=== PATIENT | female | born 1940 | race Caucasian/White ===

== ENCOUNTER → 2016-09-11 | Outpatient (CLI) | payer MEDICARE ==
[~2016-09-11] MED LIST: AMLO5TAB22 PO; ASPI81TA82 PO; BENA25CA2 PO; EPIP0.3I IM; OMEP20TA39 PO; PRED20 PO
[2016-09-11 11:10] LABS: BLOOD GAS BASE EXCESS -0.2 mmol/L (-2-2); BLOOD GAS CARBOXYHEMOGLOBIN 1.2 % (0-4); BLOOD GAS HCO3 24 mmol/L (22-26); BLOOD GAS METHEMOGLOBIN 1.3 % (0-2); BLOOD GAS O2 HGB SATURATION 92 % (90-100); BLOOD GAS OXYGEN CONTENT 18.3 Vol % (12.0-20.0); BLOOD GAS PCO2 37 mmHg (38-42); BLOOD GAS PO2 75 mmHg (61-120); BLOOD GAS TOTAL HGB 14.1 G/DL (12.0-16.0); TEMP CORR TO 98.6
[2016-09-11 11:11] LABS: CRITICAL VALUE NO; DRAW SITE RT RADIAL; FIO2 21 %; NUMBER OF ARTERIAL PUNCTURES 1; STAT NO; ULNAR PULSE PRESENT
--- NOTE | 2016-09-18 08:58 | RSPPFT ---
DATE OF PROCEDURE: 09/11/16 COMMENTS: Spirometry with FVC of 1.9 predicted 2.3, FEV1 of 1.4 predicted 1.7. Post-bronchodilator FVC increases to 2.3 and FEV1 to 1.7. Lung volumes are basically within the predicted range as well as the DLCO. Patient has mild reversibility to acutely inhaled bronchodilator. IMPRESSION:
== END ==
LOC: HRSP 10:27
PROVIDERS: ATTEND Internal Medicine Pulmonary Disease
DX: R06.02 Shortness of breath (principal)
CPT/HCPCS: 36600; 82805; 94060; 94620; 94726; 94729

== ENCOUNTER 2016-10-30 07:42 | Inpatient (IN) | payer MEDICARE ==
[~2016-10-30] VITALS: Ht 156.2 cm; Wt 65.0 kg
[2016-10-30] VITALS (11 sets, daily range): BP systolic 133–190; BP diastolic 77–93; PULSE 84–125; RESP 16–25; TEMP 97.9–98.7; O2SAT 96–100
--- NOTE | 2016-10-30 08:05 | PD ---
HPI Chief Complaint: Respiratory Distress Time Seen by Provider: 08:01 Travel History International Travel<30 days: No Contact w/Intl Traveler<30days: No Traveled to known affect area: No History of Present Illness HPI Patient 68-year-old female presents emergency Department with chest tightness shortness of breath particularly over the left side of her chest. She states it started a week ago but hit her very suddenly this morning feeling very tight in her chest. Does endorse shortness of breath no nausea no vomiting. She states that she also noticed some swelling in her left lower extremity which is since resolved. She states this was located over the medial aspect of her left leg. Denies any fevers cough but does endorse some congestion. PFSH Past Medical History Asthma: No Blood Disorders: No Anxiety: No Depression: No Heart Rhythm Problems: No Cancer: No Cardiovascular Problems: Yes (HTN) High Cholesterol: No Chemotherapy: No Chest Pain: Yes Congestive Heart Failure: No COPD: No Cerebrovascular Accident: Yes (COPD) Diabetes: Yes Diminished Hearing: No Endocrine: Yes (DM ) Gastrointestinal Disorders: No Genitourinary: Yes (UTI) Hypertension: Yes Immune Disorder: No Implanted Vascular Access Dvce: No Musculoskeletal: No Neurologic: No Psychiatric: No Reproductive: No Respiratory: No Radiation Therapy: No Sleep Apnea: No Thyroid Disease: No ?: Not Dilation and Curettage (D&C): Yes Past Surgical History Cholecystectomy: Yes Tonsillectomy: Yes Social History Alcohol Use: No Tobacco Use: No Substance Use: No Allergies-Medications (Allergen,Severity, Reaction): Coded Allergies: iohexol (Unverified Allergy, Mild, 10/30/16) insulin aspart (Unverified Adverse Reaction, Intermediate, 10/30/16) chest pressure, SOB AND AND HEADACHES. insulin aspart protamine human (Unverified Adverse Reaction, Intermediate , 10/30/16) chest pressure, SOB AND AND HEADACHES. insulin detemir (Unverified Adverse Reaction, Intermediate, 10/30/16) chest pressure, SOB AND AND HEADACHES. insulin glargine (Unverified Adverse Reaction, Intermediate, 10/30/16) chest pressure, SOB AND AND HEADACHES. insulin isophane (NPH) (Unverified Adverse Reaction, Intermediate, 10/30/16 ) chest pressure, SOB AND AND HEADACHES. insulin lispro (Unverified Adverse Reaction, Intermediate, 10/30/16) chest pressure, SOB AND AND HEADACHES. insulin regular (Unverified Adverse Reaction, Intermediate, 10/30/16) chest pressure, SOB AND AND HEADACHES. Reported Meds & Prescriptions Reported Meds & Active Scripts Active Reported Amlodipine (Amlodipine Besylate) 5 Mg Tab 5 Mg PO BID Aspirin Children's (Aspirin) 81 Mg Chew 81 Mg CHEW DAILY Review of Systems Except as stated in HPI: all other systems reviewed are Neg Physical Exam Narrative GENERAL: Well-developed well-nourished in no obvious distress. SKIN: Focused skin assessment warm/dry. HEAD: Atraumatic. Normocephalic. EYES: Pupils equal and round. No scleral icterus. No injection or drainage. ENT: No nasal bleeding or discharge. Mucous membranes pink and moist. NECK: Trachea midline. No JVD. CARDIOVASCULAR: Regular rate and rhythm. No murmur appreciated. RESPIRATORY: No accessory muscle use. Clear to auscultation. Breath sounds equal bilaterally. Mildly tachypneic. Speaking in full sentences distractible from her shortness of breath. GASTROINTESTINAL: Abdomen soft, non-tender, nondistended. Hepatic and splenic margins not palpable. MUSCULOSKELETAL: No obvious deformities. No clubbing. No cyanosis. No edema. NEUROLOGICAL: Awake and alert. No obvious cranial nerve deficits. Motor grossly within normal limits. Normal speech. PSYCHIATRIC: Appropriate mood and affect; insight and judgment normal. Data Data Last Documented VS Vital Signs Date Time Temp Pulse Resp B/P Pulse Ox O2 Delivery O2 Flow Rate FiO2 10/30/16 12:58 97 18 154/89 98 Nasal Cannula 2 10/30/16 08:05 98.4 Orders Electrocardiogram (10/30/16 08:02) B-Type Natriuretic Peptide (10/30/16 08:02) Ckmb (Isoenzyme) Profile (10/30/16 08:02) Complete Blood Count With Diff (10/30/16 08:02) Comprehensive Metabolic Panel (10/30/16 08:02) Magnesium (Mg) (10/30/16 08:02) Prothrombin Time / Inr (Pt) (10/30/16 08:02) Act Partial Throm Time (Ptt) (10/30/16 08:02) Troponin I (10/30/16 08:02) Chest, Single Ap (10/30/16 08:02) Ecg Monitoring (10/30/16 08:02) Iv Access Insert/Monitor (10/30/16 08:02) Oximetry (10/30/16 08:02) Oxygen Administration (10/30/16 08:02) Aspirin Chew (Aspirin Chew) (10/30/16 08:15) Sodium Chloride 0.9% Flush (Ns Flush) (10/30/16 08:15) D-Dimer (10/30/16 08:05) Ventilation & Perfusion Scan (10/30/16 ) Nitroglycerin Sl (Nitrostat Sl) (10/30/16 08:30) Lorazepam Inj (Ativan Inj) (10/30/16 09:15) Admit Order (Ed Use Only) (10/30/16 ) Labs Laboratory Tests Test 10/30/16 08:20 White Blood Count 7.9 TH/MM3 Red Blood Count 4.55 MIL/MM3 Hemoglobin 13.6 GM/DL Hematocrit 40.5 % Mean Corpuscular Volume 88.9 FL Mean Corpuscular Hemoglobin 30.0 PG Mean Corpuscular Hemoglobin 33.7 % Concent Red Cell Distribution Width 13.9 % Platelet Count 246 TH/MM3 Mean Platelet Volume 8.8 FL Neutrophils (%) (Auto) 50.3 % Lymphocytes (%) (Auto) 37.5 % Monocytes (%) (Auto) 5.8 % Eosinophils (%) (Auto) 5.4 % Basophils (%) (Auto) 1.0 % Neutrophils # (Auto) 4.0 TH/MM3 Lymphocytes # (Auto) 3.0 TH/MM3 Monocytes # (Auto) 0.5 TH/MM3 Eosinophils # (Auto) 0.4 TH/MM3 Basophils # (Auto) 0.1 TH/MM3 CBC Comment DIFF FINAL Differential Comment Prothrombin Time 10.1 SEC Prothromb Time International 0.9 RATIO Ratio Activated Partial 25.6 SEC Thromboplast Time D-Dimer Quantitative (PE/DVT) 0.77 MG/L FEU Sodium Level 136 MEQ/L Potassium Level 3.6 MEQ/L Chloride Level 103 MEQ/L Carbon Dioxide Level 26.0 MEQ/L Anion Gap 7 MEQ/L Blood Urea Nitrogen 14 MG/DL Creatinine 0.83 MG/DL Estimat Glomerular Filtration 66 ML/MIN Rate Random Glucose 234 MG/DL Calcium Level 8.1 MG/DL Magnesium Level 2.2 MG/DL Total Bilirubin 0.3 MG/DL Aspartate Amino Transf 13 U/L (AST/SGOT) Alanine Aminotransferase 20 U/L (ALT/SGPT) Alkaline Phosphatase 119 U/L Total Creatine Kinase 55 U/L Troponin I LESS THAN 0.02 NG/ML B-Type Natriuretic Peptide 23 PG/ML Total Protein 6.5 GM/DL Albumin 3.6 GM/DL MDM Medical Decision Making Medical Screen Exam Complete: Yes Emergency Medical Condition: Yes Interpretation(s) EKG shows sinus rhythm a rate of 94, normal axis and normal R-wave progression. Nonspecific T-wave abnormality in V5 and V6. Intervals within normal limits. This borderline EKG Differential Diagnosis PE, ACS, AMI, pneumonia, anxiety. Narrative Course Patient roomed in emergency department, not impressed with her leg swelling but given her age and her chest pain shortness of breath she needs exclusion of PE. A d-dimer was sent which was slightly positive. Given the patient's allergy she cannot be having a CAT scan pulmonary embolism. She instead underwent VQ scan was low probability for pulmonary embolus. Discussed results with her and recommended chest pain center observation and she is agreeable. Initially placed in orders for chest pain center however was informed that given that she' s had VQ scan she is inappropriate for stress testing for the next 48 hours and chest pain center PA recommends admission to hospitalist. The patient was discussed with Dr. Paul for admission to Dr. Smith. Diagnosis Primary Impression: Chest pain Admitting Information Admitting Physician Requests: Observation Condition: Stable Napoleon Santana MD Oct 30, 2016 08:05
[2016-10-30] MEDS ORDERED: ASPI81CH7 CHEW (08:12)
[2016-10-30] MEDS ORDERED: AMLO5TAB2 PO (08:12)
[2016-10-30] MEDS ORDERED: SODIUM CHLORIDE 0.9% FLUSH 10 ML FLUSH IVF PRN (08:15)
[2016-10-30] MEDS ORDERED: ASPIRIN 81 MG CHEW TAB PO ONE (08:15)
[2016-10-30] MEDS ORDERED: NITROGLYCERIN 0.4 MG SL 25 TABS/BTL SL ONE (08:30)
[2016-10-30 08:41] LABS: BASOPHIL # 0.1 TH/MM3 (0-0.2); EOSINOPHIL # 0.4 TH/MM3 (0-0.4); EOSINOPHIL % 5.4 % (0.0-4.0); HEMATOCRIT 40.5 % (35.0-46.0); HEMO FLAGS DIFF FINAL; LYMPH % 37.5 % (9.0-44.0); MEAN CELL VOLUME 88.9 FL (80.0-100.0); MEAN CORPUSCULAR HGB CONC 33.7 % (32.0-36.0); MONO % 5.8 % (0.0-8.0); NEUT % 50.3 % (16.0-70.0); PLATELET COUNT 246 TH/MM3 (150-450); RED BLOOD COUNT 4.55 MIL/MM3 (4.00-5.30); RED CELL DISTRIBUTION WIDTH 13.9 % (11.6-17.2); WHITE BLOOD COUNT 7.9 TH/MM3 (4.0-11.0)
--- NOTE | 2016-10-30 08:52 | RADRPT ---
EXAM DATE/TIME: 10/30/2016 08:21 [facility] COMPARISON: CHEST SINGLE AP, June 06, 2014, 11:12. INDICATIONS : Chest pain. MEDICAL HISTORY : None. SURGICAL HISTORY : None. ENCOUNTER: Initial ACUITY: 1 day PAIN SCORE: 6/10 LOCATION: Middle chest FINDINGS: The heart and mediastinal structures are normal. The pulmonary vascular pattern is normal. The lung s are clear. Degenerative changes and scoliosis of the thoracolumbar spine are noted. CONCLUSION: 1. No acute cardiopulmonary disease. 2. Degenerative changes and scoliosis of the thoracolumbar spine. Napoleon Mills MD on October 30, 2016 at 8:46 Board Certified Radiologist. This report was verified electronically.
[2016-10-30 08:58] LABS: APTT (PATIENT) 25.6 SEC (24.3-30.1); INTERNATIONAL NORMALIZED RATIO 0.9 RATIO; PROTHROMBIN TIME - PATIENT 10.1 SEC (9.8-11.6)
[2016-10-30 08:59] LABS: ALT (GPT) 20 U/L (10-53); ANION GAP 7 MEQ/L (5-15); AST (GOT) 13 U/L (15-37); BLOOD UREA NITROGEN 14 MG/DL (7-18); CHLORIDE 103 MEQ/L (98-107); GLOMERULAR FILTRATION RATE 66 ML/MIN (>89); MAGNESIUM 2.2 MG/DL (1.5-2.5); POTASSIUM 3.6 MEQ/L (3.5-5.1); SODIUM (NA) 136 MEQ/L (136-145)
[2016-10-30 09:03] LABS: ALKALINE PHOSPHATASE 119 U/L (45-117); TOTAL BILIRUBIN ADULT 0.3 MG/DL (0.2-1.0)
[2016-10-30 09:07] LABS: CREATINE KINASE 55 U/L (26-192)
[2016-10-30] MEDS ORDERED: LORazepam 2 MG/ML VIAL IV PUSH ONE (09:15)
--- NOTE | 2016-10-30 12:55 | RADRPT ---
EXAM DATE/TIME: 10/30/2016 12:06 [facility] COMPARISON: CHEST SINGLE AP, October 30, 2016, 8:21. INDICATIONS : Chest tightness with dyspnea and left lower extremity swelling. DOSE: 8.6 mCi Tc99m MAA IV 1.3 mCi Tc99m DTPA aerosol MEDICAL HISTORY : Chronic obstructive pulmonary disease. Diabetes mellitus type 2. Hypertension. Stroke. SURGICAL HISTORY : Cholecystectomy. ENCOUNTER: Initial ACUITY: 1 week PAIN SCALE: 3/10 LOCATION: chest TECHNIQUE: Following five minutes of tidal breathing of DTPA aerosol, planar images of the lungs were performed in eight projections. The patient was then injected with MAA, and eight-view perfusion scan was perf ormed. FINDINGS: There is a homogeneous pattern of aerosol delivery to the periphery of both lungs. No focal ventilat ory defects are seen. The perfusion lung scan demonstrates a homogenous pattern of uptake in both lungs. No segmental or s ubsegmental defects are seen. CONCLUSION: Low probability for pulmonary embolism. Napoleon Mills MD on October 30, 2016 at 12:53 Board Certified Radiologist. This report was verified electronically.
--- NOTE | 2016-10-30 16:44 | EKG ---
Date Performed: 10/30/2016 Time Performed: 08:15:05 PTAGE: 76 years EKG: Sinus rhythm NONSPECIFIC T-WAVE ABNORMALITY BORDERLINE ECG PREVIOUS TRACING : 06/06/2014 23.31 Compared to prior tracing no significant change DOCTOR: Mitchell Dominguez Interpretating Date/Time 10/30/2016 16:42:28
[2016-10-30] MEDS ORDERED: LACTULOSE SYRUP 20 GM/30 ML CUP PO PRN (17:00)
[2016-10-30] MEDS ORDERED: ACETAMINOPHEN 325 MG TAB PO PRN (17:00)
[2016-10-30] MEDS ORDERED: SODIUM CHLORIDE 0.9% FLUSH 10 ML FLUSH IV FLUSH PRN (17:00)
[2016-10-30] MEDS ORDERED: BISACODYL 10 MG SUPP RECTAL PRN (17:00)
[2016-10-30] MEDS ORDERED: SENNOSIDES 8.6 MG TAB PO PRN (17:00)
[2016-10-30] MEDS ORDERED: MAGNESIUM HYDROXIDE SUSP 30 ML CUP PO PRN (17:00)
[2016-10-30] MEDS ORDERED: NALOXONE HCL 0.4 MG/ML AMP IV PRN (17:00)
--- NOTE | 2016-10-30 17:13 | HHI.HP ---
HPI Service [facility] Hospitalists Primary Care Physician Yancy Dsouza MD Admission Diagnosis Chest Pain Chief Complaint: chest pain and some shortness of breath for 2 -3 days worse today Travel History International Travel<30 Days: No Contact w/Intl Traveler <30 Da: No Traveled to Known Affected Are: No History of Present Illness Patient 68-year-old female presents emergency Department with chest tightness shortness of breath particularly over the left side of her chest. She states it started a week ago but hit her very suddenly this morning feeling very tight in her chest. Does endorse shortness of breath no nausea no vomiting. She states that she also noticed some swelling in her left lower extremity which is since resolved. She states this was located over the medial aspect of her left leg. Denies any fevers cough but does endorse some congestion. Does state has had problems with legs for a while due to varicosities. Patient also states unable to tolerate iv contrast and had nuc stress test in past and coded. Review of Systems Respiratory: COMPLAINS OF: Shortness of breath Cardiovascular: COMPLAINS OF: Chest pain Past Family Social History Past Medical History copd,chest pain,hypertension allergies to multiple meds ,insulin and po insulin products Past Surgical History gallbladder,tonsil Reported Medications norvasc 5 bid,asa81,prednisone when having allergic reactions Allergies: Coded Allergies: iohexol (Unverified Allergy, Mild, 10/30/16) insulin aspart (Unverified Adverse Reaction, Intermediate, 10/30/16) chest pressure, SOB AND AND HEADACHES. insulin aspart protamine human (Unverified Adverse Reaction, Intermediate , 10/30/16) chest pressure, SOB AND AND HEADACHES. insulin detemir (Unverified Adverse Reaction, Intermediate, 10/30/16) chest pressure, SOB AND AND HEADACHES. insulin glargine (Unverified Adverse Reaction, Intermediate, 10/30/16) chest pressure, SOB AND AND HEADACHES. insulin isophane (NPH) (Unverified Adverse Reaction, Intermediate, 10/30/16 ) chest pressure, SOB AND AND HEADACHES. insulin lispro (Unverified Adverse Reaction, Intermediate, 10/30/16) chest pressure, SOB AND AND HEADACHES. insulin regular (Unverified Adverse Reaction, Intermediate, 10/30/16) chest pressure, SOB AND AND HEADACHES. Social History NS,ND Physical Exam Vital Signs Vital Signs Date Time Temp Pulse Resp B/P Pulse Ox O2 Delivery O2 Flow Rate FiO2 10/30/16 15:00 88 16 153/81 98 Nasal Cannula 2 10/30/16 14:00 88 18 149/79 98 Nasal Cannula 2 10/30/16 12:58 97 18 154/89 98 Nasal Cannula 2 10/30/16 11:00 86 16 133/77 98 Nasal Cannula 2 10/30/16 09:50 96 18 154/87 99 Nasal Cannula 2 10/30/16 09:05 125 24 181/93 98 Nasal Cannula 4 10/30/16 09:05 98 Nasal Cannula 4 10/30/16 08:10 96 Room Air 10/30/16 08:10 96 Room Air 10/30/16 08:05 98.4 96 25 190/90 96 Room Air 10/30/16 07:44 98.7 104 20 179/81 97 Physical Exam GENERAL: This is a well-nourished, well-developed patient, in no apparent distress. SKIN: No rashes, ecchymoses or lesions. Cool and dry. HEAD: Atraumatic. Normocephalic. No temporal or scalp tenderness. EYES: Pupils equal round and reactive. Extraocular motions intact. No scleral icterus. No injection or drainage. ENT: Nose without bleeding, purulent drainage or septal hematoma. Throat without erythema, tonsillar hypertrophy or exudate. Uvula midline. Airway patent. NECK: Trachea midline. No JVD or lymphadenopathy. Supple, nontender, no meningeal signs. CARDIOVASCULAR: Regular rate and rhythm without murmurs, gallops, or rubs. RESPIRATORY: rhonchi at bases some decrease in breath sounds GASTROINTESTINAL: Abdomen soft, non-tender, nondistended. No hepato-splenomegaly , or palpable masses. No guarding. MUSCULOSKELETAL: Extremities without clubbing, cyanosis, or edema. No joint tenderness, effusion, or edema noted. No calf tenderness. Negative Homans sign bilaterally. NEUROLOGICAL: Awake and alert. Cranial nerves II through XII intact. Motor and sensory grossly within normal limits. Five out of 5 muscle strength in all muscle groups. Normal speech. Laboratory Laboratory Tests Test 10/30/16 08:20 White Blood Count 7.9 Red Blood Count 4.55 Hemoglobin 13.6 Hematocrit 40.5 Mean Corpuscular Volume 88.9 Mean Corpuscular Hemoglobin 30.0 Mean Corpuscular Hemoglobin 33.7 Concent Red Cell Distribution Width 13.9 Platelet Count 246 Mean Platelet Volume 8.8 Neutrophils (%) (Auto) 50.3 Lymphocytes (%) (Auto) 37.5 Monocytes (%) (Auto) 5.8 Eosinophils (%) (Auto) 5.4 Basophils (%) (Auto) 1.0 Neutrophils # (Auto) 4.0 Lymphocytes # (Auto) 3.0 Monocytes # (Auto) 0.5 Eosinophils # (Auto) 0.4 Basophils # (Auto) 0.1 CBC Comment DIFF FINAL Differential Comment Prothrombin Time 10.1 Prothromb Time International 0.9 Ratio Activated Partial 25.6 Thromboplast Time D-Dimer Quantitative (PE/DVT) 0.77 Sodium Level 136 Potassium Level 3.6 Chloride Level 103 Carbon Dioxide Level 26.0 Anion Gap 7 Blood Urea Nitrogen 14 Creatinine 0.83 Estimat Glomerular Filtration 66 Rate Random Glucose 234 Calcium Level 8.1 Magnesium Level 2.2 Total Bilirubin 0.3 Aspartate Amino Transf 13 (AST/SGOT) Alanine Aminotransferase 20 (ALT/SGPT) Alkaline Phosphatase 119 Total Creatine Kinase 55 Troponin I LESS THAN 0.02 B-Type Natriuretic Peptide 23 Total Protein 6.5 Albumin 3.6 Result Diagram: 10/30/16 0820 10/30/16 0820 Imaging Last 24 hours Impressions Chest X-Ray 10/30/16 0802 Signed Impressions: Service Date/Time: October 08:21 - CONCLUSION: 1. No acute cardiopulmonary disease. 2. Degenerative changes and scoliosis of the thoracolumbar spine. Napoleon Mills MD Lung Scan-V Nuclear Medicine 10/30/16 0000 Signed Impressions: Service Date/Time: October 12:06 - CONCLUSION: Low probability for pulmonary embolism. Napoleon Mills MD Course in er given ntg did have positive d dimmer and v/q negative Assessment and Plan Problem List: (1) Chest pain Status: Acute Plan: somewhat atypical will obtain serial enzymes and ekg and cardiac consult (2) COPD (chronic obstructive pulmonary disease) Status: Chronic Plan: use duo nebulizer prn and oxygen (3) HTN (hypertension) Status: Chronic Plan: continue norvasc (4) Diabetes Status: Chronic Plan: will follow glucose in am allergic to medications Assessment and Plan further plan as case develops Code Status full Discussed Condition With patient Physician Certification 2 Midnight Certification Type: Admission for Inpatient Services Order for Inpatient Services The services are ordered in accordance with Medicare regulations or non- Medicare payer requirements, as applicable. In the case of services not specified as inpatient-only, they are appropriately provided as inpatient services in accordance with the 2-midnight benchmark. Estimated LOS (days): 3 3 days is the estimated time the patient will need to remain in the hospital, assuming treatment plan goals are met and no additional complications. Post-Hospital Plan: Not yet determined Michael Funk MD Oct 30, 2016 17:13
[2016-10-30] MEDS ORDERED: NITROGLYCERIN 0.4 MG SL 25 TABS/BTL SL PRN (17:15)
[2016-10-30] MEDS ORDERED: LORazepam 0.5 MG TAB PO PRN (17:15)
[2016-10-30 20:51] LABS: CREATINE KINASE 62 U/L (26-192)
[2016-10-30] MEDS: RESP: ALBUTEROL 2.5 MG/IPRATROPIUM 0.5 MG NEB (PRN) NEB (20:59)
[2016-10-30] MEDS: SODIUM CHLORIDE 0.9% FLUSH 10 ML FLUSH IV FLUSH SCH (21:00)
[2016-10-30] MEDS: amLODIPine BESYLATE 5 MG TAB PO SCH (21:45)
[2016-10-30] MEDS: DOCUSATE SODIUM 50 MG/SENNA 8.6 MG TAB PO SCH (21:45)
[2016-10-31 00:06] VITALS: BP 154/70; PULSE 77; TEMP 98.6; O2SAT 97
[2016-10-31 02:33] LABS: AUTOMATED NEUTROPHIL # 4.1 TH/MM3 (1.8-7.7); BASOPHIL # 0.1 TH/MM3 (0-0.2); BASOPHIL % 0.9 % (0.0-2.0); EOSINOPHIL # 0.4 TH/MM3 (0-0.4); EOSINOPHIL % 4.4 % (0.0-4.0); HEMATOCRIT 39.9 % (35.0-46.0); HEMO FLAGS DIFF FINAL; LYMPH % 41.4 % (9.0-44.0); LYMPHOCYTE # 3.7 TH/MM3 (1.0-4.8); MEAN CELL VOLUME 89.2 FL (80.0-100.0); MEAN CORPUSCULAR HEMOGLOBIN 29.5 PG (27.0-34.0); MEAN CORPUSCULAR HGB CONC 33.1 % (32.0-36.0); MONO % 7.3 % (0.0-8.0); PLATELET COUNT 228 TH/MM3 (150-450); RED BLOOD COUNT 4.48 MIL/MM3 (4.00-5.30); WHITE BLOOD COUNT 8.9 TH/MM3 (4.0-11.0)
[2016-10-31 02:52] LABS: ANION GAP 7 MEQ/L (5-15); BICARBONATE 27.8 MEQ/L (21.0-32.0); BLOOD UREA NITROGEN 12 MG/DL (7-18); CHLORIDE 104 MEQ/L (98-107); GLOMERULAR FILTRATION RATE 71 ML/MIN (>89); POTASSIUM 3.8 MEQ/L (3.5-5.1); SODIUM (NA) 139 MEQ/L (136-145)
[2016-10-31 02:57] LABS: CREATINE KINASE 57 U/L (26-192)
[2016-10-31 06:26] VITALS: BP 135/72; PULSE 82; RESP 18; TEMP 98.4; O2SAT 94
[2016-10-31] MEDS: RESP: ALBUTEROL 2.5 MG/IPRATROPIUM 0.5 MG NEB (PRN) NEB (07:25)
[2016-10-31 07:28] VITALS: O2SAT 96
[2016-10-31 07:56] VITALS: BP 143/65; PULSE 90; RESP 18; TEMP 97.7; O2SAT 95
[2016-10-31 08:00] VITALS: PULSE 84
--- NOTE | 2016-10-31 08:37 | MB ---
cc: LIZBETH AQUINO DATE OF CONSULTATION 10/31/2016 INDICATION Chest pain, shortness of breath. BRIEF HISTORY This is a 68-year-old female. She does have a history of known heart disease follows with Dr. Johnson for some "extra heartbeats and hypertension". She does not see him on a regular basis, but does state that she had a stress test earlier this year which was reportedly normal. She came into the emergency department with several days of progressive shortness of breath and a band-like sensation across her chest. They seem to occur at the same time. She does have some relief with an inhaler. No pain with deep inspiration. Her symptoms are not exertional related. She says she can wake up with shortness of breath. She has had a nonproductive cough. She did have some swelling in the left leg which is now resolved. PAST MEDICAL HISTORY 1. COPD 2. Hypertension MEDICATIONS Norvasc ALLERGIES Insulin SOCIAL HISTORY Denies any alcohol, tobacco or drug use. REVIEW OF SYSTEMS A 12 poin review of systems was performed and is negative unless otherwise as noted in the history of present illness. PHYSICAL EXAMINATION Temperature 98, pulse 82, blood pressure 135/72 mmHg. GENERAL: Alert and oriented x3 in no acute distress. HEENT: Exam shows pupils reactive to light and accommodation. Extraocular movements are intact. NECK: No elevation of venous distension. No thyromegaly or lymphadenopathy. No carotid bruits. LUNGS: Clear to auscultation bilaterally. CARDIOVASCULAR: Regular rate and rhythm without murmurs, rubs or gallops. ABDOMEN: Nontender and nondistended with good bowel sounds. No hepatosplenomegaly. EXTREMITIES: No clubbing, cyanosis or edema. Good peripheral pulses. NEUROLOGIC: Cranial nerves intact. Motor sensory grossly intact. LABORATORY DATA Sodium 139, potassium 3.8, BUN is 12, creatinine 0.78, troponins negative x3. WBC 8.9, hemoglobin is 13.2, platelet count is 228, INR 0.9. Electrocardiogram sinus rhythm, nonspecific ST flattening. No change compared to prior electrocardiogram. ASSESSMENT 1. Chest pain 2. Shortness of breath 3. High blood pressure PLAN Her symptoms are fairly atypical, nonexertional. Her chest pain is associated with her shortness of breath, but sounds for bronchospastic. She has also had a nonproductive cough. Chest x-ray is unremarkable. VQ scan is unremarkable. She may have some sort of upper respiratory infection/bronchitis with reactive airway disease. Her symptoms improved with bronchodilator. Her last stress test she states she had severe bronchospasm, probably induced by the adenosine. She is reluctant to proceed with any further stress testing with nuclear stress testing. I do not think she will be able to run on a treadmill. At this point, given her atypical presentation, negative troponin, and unremarkable electrocardiogram, I feel pretty comfortable that her symptoms are more pulmonary than cardiac. She will need to get on a bronchodilator regimen and she can follow up with Dr. Johnson in the outpatient setting. At that point if she is still having some symptoms, we can try to coordinate for stress test. MD DIANA Verdugo/ELEUTERIO /7:58 AM /8:27 AM
[2016-10-31] MEDS ORDERED: ASPIRIN 81 MG CHEW TAB CHEW SCH (09:00)
[2016-10-31] MEDS: amLODIPine BESYLATE 5 MG TAB PO SCH (09:33)
[2016-10-31] MEDS: DOCUSATE SODIUM 50 MG/SENNA 8.6 MG TAB PO SCH (09:33)
[2016-10-31] MEDS: SODIUM CHLORIDE 0.9% FLUSH 10 ML FLUSH IV FLUSH SCH (09:34)
[2016-10-31] MEDS ORDERED: methylPREDNISolone SOD SUCC 125 MG/2 ML VIAL IV PUSH ONE (10:00)
--- NOTE | 2016-10-31 10:02 | HHI.PR ---
Subjective Remarks Pt reports that she has been having wheezing and slight SOB with exertion for the last few weeks Then yesterday this worsened significantly and she felt like she couldn't catch her breath and had some chest tightness Pt was quite anxious as well. She has a hx of COPD and has had some slight exacerbations in the last and has had to use nebulizer breathing treatments and home previously She had not been using her nebulizer treatments when her wheezing and SOB began a few weeks ago. She has had two breathing treatments since admission and is symptomatically feeling better today but still having wheezing. Objective Vitals Vital Signs Date Time Temp Pulse Resp B/P Pulse Ox O2 Delivery O2 Flow Rate FiO2 10/31/16 07:56 97.7 90 18 143/65 95 10/31/16 07:28 96 21 10/31/16 06:26 98.4 82 18 135/72 94 10/31/16 00:06 98.6 77 154/70 97 10/30/16 20:59 100 Nasal Cannula 2.00 10/30/16 18:00 97.9 84 16 168/79 97 10/30/16 15:00 88 16 153/81 98 Nasal Cannula 2 10/30/16 14:00 88 18 149/79 98 Nasal Cannula 2 10/30/16 12:58 97 18 154/89 98 Nasal Cannula 2 10/30/16 11:00 86 16 133/77 98 Nasal Cannula 2 10/30/16 10/30/16 10/31/16 15:00 23:00 07:00 Intake Total 200 ml Output Total 200 ml Balance 200 ml -200 ml Intake Oral 200 ml Output Urine Total 200 ml Result Diagram: 10/31/168 10/31/168 Other Results Laboratory Tests Test 10/30/16 10/30/16 10/31/16 08:20 19:24 02:18 White Blood Count 7.9 TH/MM3 8.9 TH/MM3 Red Blood Count 4.55 MIL/MM3 4.48 MIL/MM3 Hemoglobin 13.6 GM/DL 13.2 GM/DL Hematocrit 40.5 % 39.9 % Mean Corpuscular Volume 88.9 FL 89.2 FL Mean Corpuscular Hemoglobin 30.0 PG 29.5 PG Mean Corpuscular Hemoglobin 33.7 % 33.1 % Concent Red Cell Distribution Width 13.9 % 14.0 % Platelet Count 246 TH/MM3 228 TH/MM3 Mean Platelet Volume 8.8 FL 8.8 FL Neutrophils (%) (Auto) 50.3 % 46.0 % Lymphocytes (%) (Auto) 37.5 % 41.4 % Monocytes (%) (Auto) 5.8 % 7.3 % Eosinophils (%) (Auto) 5.4 % 4.4 % Basophils (%) (Auto) 1.0 % 0.9 % Neutrophils # (Auto) 4.0 TH/MM3 4.1 TH/MM3 Lymphocytes # (Auto) 3.0 TH/MM3 3.7 TH/MM3 Monocytes # (Auto) 0.5 TH/MM3 0.6 TH/MM3 Eosinophils # (Auto) 0.4 TH/MM3 0.4 TH/MM3 Basophils # (Auto) 0.1 TH/MM3 0.1 TH/MM3 CBC Comment DIFF FINAL DIFF FINAL Differential Comment Prothrombin Time 10.1 SEC Prothromb Time International 0.9 RATIO Ratio Activated Partial 25.6 SEC Thromboplast Time D-Dimer Quantitative (PE/DVT) 0.77 MG/L FEU Sodium Level 136 MEQ/L 139 MEQ/L Potassium Level 3.6 MEQ/L 3.8 MEQ/L Chloride Level 103 MEQ/L 104 MEQ/L Carbon Dioxide Level 26.0 MEQ/L 27.8 MEQ/L Anion Gap 7 MEQ/L 7 MEQ/L Blood Urea Nitrogen 14 MG/DL 12 MG/DL Creatinine 0.83 MG/DL 0.78 MG/DL Estimat Glomerular Filtration 66 ML/MIN 71 ML/MIN Rate Random Glucose 234 MG/DL 155 MG/DL Calcium Level 8.1 MG/DL 8.5 MG/DL Magnesium Level 2.2 MG/DL Total Bilirubin 0.3 MG/DL Aspartate Amino Transf 13 U/L (AST/SGOT) Alanine Aminotransferase 20 U/L (ALT/SGPT) Alkaline Phosphatase 119 U/L Total Creatine Kinase 55 U/L 62 U/L 57 U/L Troponin I LESS THAN 0.02 LESS THAN 0.02 LESS THAN 0.02 NG/ML NG/ML NG/ML B-Type Natriuretic Peptide 23 PG/ML Total Protein 6.5 GM/DL Albumin 3.6 GM/DL Imaging Last 24 hours Impressions Chest X-Ray 10/30/16 0802 Signed Impressions: Service Date/Time: October 08:21 - CONCLUSION: 1. No acute cardiopulmonary disease. 2. Degenerative changes and scoliosis of the thoracolumbar spine. Napoleon Mills MD Lung Scan-VQ Nuclear Medicine 10/30/16 0000 Signed Impressions: Service Date/Time: , October 30, 2016 12:06 - CONCLUSION: Low probability for pulmonary embolism. Napoleon Mills MD Objective Remarks General: NAD, AAOx3 Chest: Bilateral diffuser expiratory wheezing Cardiac: Regular Abd: +BS, soft ND/NT Ext: No edema A/P Problem List: (1) COPD exacerbation Status: Acute Plan: - Pt admitted with nonexertional chest tightness, SOB and wheezing which worsened yesterday. - She appears to be having a COPD exacerbation. - Pt had a CXR which was unremarkable - VQ scan with low probability for PE - Her CE are negative. - Pt was seen by Cardiology this morning and it was felt that her symptoms of chest pain are more pulmonary related. - We will give Solu-Medrol 125mg x one dose and then 60mg Q6H today - Schedule her Duoneb treatments Q4H WA - Monitor blood sugars closely while on the steroids. - Supportive care ADDENDUM: - Upon re-evaluation today pt wanted to be discharged home. - We will do a quick steroid taper and have her continue her breathing treatments at home Q4H while awake for the next 4-5 days then can be used Q4H PRN - pt will need to followup with her PCP in 1 week. (2) Chest pain Status: Acute Plan: - See above. (3) HTN (hypertension) Status: Chronic Plan: - Continue norvasc - Monitor (4) Diabetes Status: Chronic Plan: - Will follow glucose closely, pt is reportedly "allergic" to long acting insulins but reports that she is willing to try to NovoLog SSI - Previous symptoms with the long acting insulin was palpitations and elevations in her BP Assessment and Plan Patient examined. Assessment and plan formulated with Ruthann Richards PA-C. I agree with the above. Ruthann Richards Oct 31, 2016 10:02 Fabrice Smith DO Nov 03, 2016 21:13
[2016-10-31] MEDS ORDERED: PRED20 PO (11:29)
[2016-10-31] MEDS ORDERED: IPRA0.02 NEB (11:29)
[2016-10-31] MEDS ORDERED: ALBU0.08 NEB (11:29)
[2016-10-31] MEDS ORDERED: INSULIN ASPART SUPPLEMENTAL SCALE SQ SCH (11:30)
--- NOTE | 2016-10-31 11:30 | HHI.DCPOC ---
Discharge Care Plan Diagnosis: (1) COPD exacerbation (2) HTN (hypertension) (3) Chest pain (4) Diabetes Goals to Promote Your Health * To prevent worsening of your condition and complications * To maintain your health at the optimal level Directions to Meet Your Goals Take your medications as prescribed Follow your dietary instruction Follow activity as directed Keep your appointments as scheduled Take your immunizations and boosters as scheduled If your symptoms worsen call your PCP, if no PCP go to Urgent Care Center or Emergency Room Smoking is Dangerous to Your Health. Avoid second hand smoke Call the 24-hour hour crisis hotline for domestic abuse at Ruthann Richards Oct 31, 2016 11:30
[2016-10-31] MEDS ORDERED: RESP: ALBUTEROL 2.5 MG/IPRATROPIUM 0.5 MG NEB (SCH) NEB (12:00)
--- NOTE | 2016-10-31 13:56 | EKG ---
Date Performed: 10/30/2016 Time Performed: 19:29:05 PTAGE: 76 years EKG: Sinus rhythm NONSPECIFIC T-WAVE ABNORMALITY BORDERLINE ECG PREVIOUS TRACING : 10/30/2016 08.15 compared to previous tracing, T wave changes are new DOCTOR: Al Johnson Interpretating Date/Time 10/31/2016 13:55:47
--- NOTE | 2016-10-31 13:57 | EKG ---
Date Performed: 10/30/2016 Time Performed: 22:10:44 PTAGE: 76 years EKG: Sinus rhythm NONSPECIFIC T-WAVE ABNORMALITY BORDERLINE ECG PREVIOUS TRACING : 10/30/2016 19.29 Since previous tracing, no significant change noted DOCTOR: Al Johnson Interpretating Date/Time 10/31/2016 13:56:38
[2016-10-31] MEDS ORDERED: methylPREDNISolone SOD SUCC 125 MG/2 ML VIAL IV PUSH SCH (16:00)
== END 2016-10-31 12:25 | disposition home or self-care (01) | DRG 192 ==
LOC: NEPC 07:42 → NEDA 13:38 → OBSVTOIN 16:59 → NEPHCDU 17:20
PROVIDERS: ADMIT Hospitalist; ATTEND Hospitalist
DX: J44.1 Chronic obstructive pulmonary disease with (acute) exacerbation (principal); E11.9 Type 2 diabetes mellitus without complications; M41.9 Scoliosis, unspecified; I10 Essential (primary) hypertension; R07.9 Chest pain, unspecified; Z86.73 Personal history of transient ischemic attack (TIA), and cerebral infarction without residual deficits
CPT/HCPCS: 71010; 78582; 80048; 80053; 82550; 83735; 83880; 84484; 85025; 85379; 85610; 85730; 93005; 94640; 94664; 96374; A9540; A9567; G0378; J2060; J2930

== ENCOUNTER 2017-03-29 19:42 | Emergency (ER) | payer MEDICARE ==
[~2017-03-29] VITALS: Ht 157.5 cm; Wt 65.0 kg
[~2017-03-29 19:42] MED LIST changes: +ALBU0.08 NEB; +AMLO5TAB2 PO; -AMLO5TAB22 PO; +ASPI81CH7 CHEW; -ASPI81TA82 PO; -BENA25CA2 PO; -EPIP0.3I IM; +IPRA0.02 NEB; -OMEP20TA39 PO
[2017-03-29 19:45] VITALS: BP 177/89; PULSE 120; RESP 16; TEMP 98.8; O2SAT 97
[2017-03-29 20:44] VITALS: BP 190/94; PULSE 108; RESP 18; TEMP 99.9; O2SAT 96
[2017-03-29] MEDS ORDERED: OSEL75 PO (20:44)
--- NOTE | 2017-03-29 21:17 | PD ---
HPI Chief Complaint: Cold / Flu Symptoms Time Seen by Provider: 21:17 Travel History International Travel<30 days: No Contact w/Intl Traveler<30days: No Traveled to known affect area: No History of Present Illness HPI 76-year-old female presents to the emergency department for complaint of possible adverse reaction to Tamiflu. Patient states symptoms began after her 1 and only dose of Tamiflu. Patient recently diagnosed with flu. Patient reports she is not improving. Presents here for further evaluation. Patient has multiple medication allergies. Patient did not take any Benadryl for symptoms. Patient states that she thinks that she had some lip swelling but denies any tongue or throat swelling. No wheezing or shortness of breath. No chest pain. No near-syncope or syncope. Patient is upset because she has 70 medication allergies she thinks that she should've never been prescribed Tamiflu. PFSH Past Medical History Narrative Medical Nursing notes reviewed Arthritis: Yes Asthma: Yes Blood Disorders: No Anxiety: Yes Depression: No Heart Rhythm Problems: Yes (EXTRA BEATS) Cancer: No Cardiovascular Problems: Yes High Cholesterol: No Chemotherapy: No Chest Pain: Yes Congestive Heart Failure: No COPD: Yes Cerebrovascular Accident: Yes (COPD) Diabetes: Yes Patient Takes Glucophage: No Diminished Hearing: No Endocrine: Yes Gastrointestinal Disorders: Yes (CHRONIC CONSTIPATION) GERD: Yes Genitourinary: Yes (UTI) Headaches: Yes Hiatal Hernia: Yes Hypertension: Yes Immune Disorder: No Implanted Vascular Access Dvce: No Musculoskeletal: No Neurologic: No Psychiatric: No Reproductive: No Respiratory: Yes Radiation Therapy: No Sleep Apnea: No Thyroid Disease: No Ulcer: Yes Dilation and Curettage (D&C): Yes Past Surgical History Abdominal Surgery: Yes (GALLBLADDER REMOVED) Cardiac Surgery: Yes (CARDIAC CATH 2014, CODED DUE TO ALLERGIC REACTION TO DYE) Cholecystectomy: Yes Gynecologic Surgery: Yes (MULTIPLE D&C'S) Tonsillectomy: Yes Other Surgery: Yes (CHOLECYSTECOMY,tonsillectomy) Social History Alcohol Use: No Tobacco Use: No Substance Use: No Allergies-Medications (Allergen,Severity, Reaction): Coded Allergies: Penicillins (Verified Allergy, Intermediate, SWELLING, 03/29/17) FACIAL SWELLING candesartan (Verified Allergy, Intermediate, Hypertension, 03/29/17) clarithromycin (Verified Allergy, Intermediate, Hypertension, 03/29/17) glyburide (Verified Allergy, Intermediate, Hyperglycemia, 03/29/17) hydrochlorothiazide (Verified Allergy, Intermediate, Hypertension, 03/29/17 ) meperidine (Verified Allergy, Intermediate, Tachycardia, 03/29/17) metoprolol (Verified Allergy, Intermediate, Hypertension, 03/29/17) ramipril (Verified Allergy, Intermediate, Hypertension, 03/29/17) iodine (Verified Allergy, Mild, Hives, 03/29/17) iohexol (Unverified Allergy, Mild, 10/30/16) theophylline (Verified Allergy, Unknown, UNKNOWN, 03/29/17) alprazolam (Verified Adverse Reaction, Intermediate, AGITATION, 03/29/17) codeine (Verified Adverse Reaction, Intermediate, Tachycardia, 03/29/17) fosinopril (Verified Adverse Reaction, Intermediate, Tachycardia, 03/29/17) insulin aspart (Unverified Adverse Reaction, Intermediate, 10/30/16) chest pressure, SOB AND AND HEADACHES. insulin aspart protamine human (Unverified Adverse Reaction, Intermediate , 10/30/16) chest pressure, SOB AND AND HEADACHES. insulin detemir (Unverified Adverse Reaction, Intermediate, 10/30/16) chest pressure, SOB AND AND HEADACHES. insulin glargine (Unverified Adverse Reaction, Intermediate, 10/30/16) chest pressure, SOB AND AND HEADACHES. insulin isophane (NPH) (Unverified Adverse Reaction, Intermediate, 10/30/16 ) chest pressure, SOB AND AND HEADACHES. insulin lispro (Unverified Adverse Reaction, Intermediate, 10/30/16) chest pressure, SOB AND AND HEADACHES. insulin regular (Unverified Adverse Reaction, Intermediate, 10/30/16) chest pressure, SOB AND AND HEADACHES. metformin (Verified Adverse Reaction, Intermediate, Hyperglycemia, 03/29/17 ) metronidazole (Verified Adverse Reaction, Intermediate, Nausea/Vomiting, ) promethazine (Verified Adverse Reaction, Intermediate, Nausea/Vomiting, ) morphine (Verified Adverse Reaction, Mild, AGITATION, 03/29/17) Uncoded Allergies: BACTIN (Adverse Reaction, Unknown, UNKNOWN, 03/29/17) Reported Meds & Prescriptions Reported Meds & Active Scripts Active Ipratropium Neb (Ipratropium Udall) 0.5 Mg/2.5 Ml Amp 0.5 Mg NEB Q4HR NEB Mix with the albuterol nebulizer and take every 4 hours while awake for the next 4-5 days, then can be used every 4 hours as need after that. Albuterol Neb (Albuterol Sulfate) 2.5 Mg/3 Ml Neb 2.5 Mg NEB Q4HR NEB Take every 4 hours while awake for the next 4-5 days, then can be used every 4 hours as needed Prednisone 20 Mg Tab 20 Mg PO DIRECTED 40 MG twice a day x 2 days, then 20 MG daily x 2 days, then 10 MG daily x 2 days, then stop Reported Tamiflu (Oseltamivir Phosphate) 75 Mg Cap 75 Mg PO BID Amlodipine (Amlodipine Besylate) 5 Mg Tab 5 Mg PO BID Aspirin Children's (Aspirin) 81 Mg Chew 81 Mg CHEW DAILY Review of Systems Except as stated in HPI: all other systems reviewed are Neg Physical Exam Narrative GENERAL: Well developed well-nourished female in no acute distress no respiratory distress SKIN: Warm and dry. No urticaria HEAD: Normocephalic. EYES: No scleral icterus. No injection or drainage. ENT: No lip tongue or posterior pharyngeal angioedema identified NECK: Supple, trachea midline. No JVD or lymphadenopathy. CARDIOVASCULAR: Regular rate and rhythm without murmurs, gallops, or rubs. RESPIRATORY: Breath sounds equal bilaterally. No accessory muscle use. GASTROINTESTINAL: Abdomen soft, non-tender, nondistended. MUSCULOSKELETAL: No cyanosis, or edema. BACK: Nontender without obvious deformity. No CVA tenderness. Data Data Last Documented VS Vital Signs Date Time Temp Pulse Resp B/P (MAP) Pulse Ox O2 Delivery O2 Flow Rate FiO2 03/29/17 23:42 03/29/17 22:38 99.5 104 20 98 Nasal Cannula 2.00 Orders Orders Diphenhydramine (Benadryl) (03/29/17 22:15) Chest, Single Ap (03/29/17 ) Ibuprofen (Advil) (03/29/17 22:15) Ed Discharge Order (03/29/17 23:20) MDM Medical Decision Making Medical Screen Exam Complete: Yes Emergency Medical Condition: Yes Medical Record Reviewed: Yes Interpretation(s) Last Impressions Chest X-Ray 03/29/17 0000 Signed Impressions: Service Date/Time: Wednesday, March 29, 2017 22:15 - CONCLUSION: No evidence of acute cardiopulmonary disease. Gael Matta MD Vital Signs Date Time Temp Pulse Resp B/P (MAP) Pulse Ox O2 Delivery O2 Flow Rate FiO2 03/29/17 22:38 99.5 104 20 155/93 (113) 98 Nasal Cannula 2.00 03/29/17 20:44 99.9 108 18 190/94 (126) 96 Room Air 03/29/17 19:45 98.8 120 16 177/89 (118) 97 Room Air Differential Diagnosis Allergic reaction adverse medication reaction; unlikely Anaphylaxis, angioedema Narrative Course Patient given dose of Benadryl and states she can only take low-dose ibuprofen maximum dose that she can take is 200 mg given ibuprofen 200 mg Patient concerned about pneumonia. Patient feels clinically improved is desirous of being discharged home; aware of imaging study shows no infiltrate or pneumonia; does not want any further intervention at this time no further intervention appears to be indicated. Diagnosis Primary Impression: Adverse drug reaction Additional Impression: Influenza Referrals: Primary Care Physician call for appointment Patient Instructions: General Instructions Additional Instructions: Increase fluid hydration Take as tolerated ibuprofen every 6 hours for fever 100.4F or greater or for pain associated inflammation Recommend use of Benadryl 25 mg as often as every 4-6 hours for ongoing allergic symptoms also may use if able to tolerate Zantac 150 twice daily for 7 days Discontinue Tamiflu Follow-up with her primary care provider call office to schedule follow-up appointment Return to the emergency department for any concerns or change in condition Disposition: 01 DISCHARGE HOME Condition: Stable Brooklyn Lopez MD Mar 29, 2017 21:17
[2017-03-29] MEDS ORDERED: IBUPROFEN 200 MG TAB PO ONE (22:15)
[2017-03-29] MEDS ORDERED: diphenhydrAMINE HCL 25 MG CAP PO ONE (22:15)
[2017-03-29 22:38] VITALS: BP 155/93; PULSE 104; RESP 20; TEMP 99.5; O2SAT 98
--- NOTE | 2017-03-29 22:38 | RADRPT ---
EXAM DATE/TIME: 03/29/2017 22:15 [facility] COMPARISON: CHEST SINGLE AP, October 30, 2016, 8:21. INDICATIONS : Shortness of breath and fever. MEDICAL HISTORY : Chronic obstructive pulmonary disease. Asthma. SURGICAL HISTORY : None. ENCOUNTER: Initial ACUITY: 1 day PAIN SCORE: 0/10 LOCATION: Bilateral chest FINDINGS: A single view of the chest demonstrates the lungs to be symmetrically aerated without evidence of mas s, infiltrate or effusion. The cardiomediastinal contours are unremarkable. Osseous structures are intact. CONCLUSION: No evidence of acute cardiopulmonary disease. Gael Matta MD on March 29, 2017 at 22:35 Board Certified Radiologist. This report was verified electronically.
== END 2017-03-30 00:09 | disposition home or self-care (01) ==
LOC: NEPC 19:42
DX: T37.5X5A Adverse effect of antiviral drugs, initial encounter (principal); J11.1 Influenza due to unidentified influenza virus with other respiratory manifestations; J44.9 Chronic obstructive pulmonary disease, unspecified; E11.9 Type 2 diabetes mellitus without complications; I10 Essential (primary) hypertension; K21.9 Gastro-esophageal reflux disease without esophagitis; F41.9 Anxiety disorder, unspecified; M19.90 Unspecified osteoarthritis, unspecified site; Z79.51 Long term (current) use of inhaled steroids
CPT/HCPCS: 71045; 99283

== ENCOUNTER 2017-08-28 12:14 | Emergency (ER) | payer OTHER, MEDICARE ==
[~2017-08-28] VITALS: Ht 157.5 cm; Wt 69.0 kg
[~2017-08-28 12:14] MED LIST changes: +OSEL75 PO
[2017-08-28 12:25] VITALS: BP 177/88; PULSE 112; RESP 16; TEMP 98.8; O2SAT 96
[2017-08-28] MEDS ORDERED: SODIUM CHLOR 0.9% 1000 ML INJ 1,000 ML IV SCH (12:40)
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
[2017-08-28 12:44] VITALS: BP 188/92; PULSE 109; RESP 14; O2SAT 95
[2017-08-28] MEDS ORDERED: MORPHINE SULFATE 4 MG/ML INJ IV PUSH ONE (12:45)
[2017-08-28] MEDS ORDERED: SODIUM CHLORIDE 0.9% FLUSH 10 ML FLUSH IVF PRN (12:45)
[2017-08-28] MEDS ORDERED: PRED10 PO (13:07)
[2017-08-28] MEDS ORDERED: VENTAER INH (13:07)
[2017-08-28 13:15] LABS: AUTOMATED NEUTROPHIL # 8.2 TH/MM3 (1.8-7.7); BASOPHIL # 0.1 TH/MM3 (0-0.2); BASOPHIL % 0.6 % (0.0-2.0); EOSINOPHIL % 0.3 % (0.0-4.0); HEMATOCRIT 43.6 % (35.0-46.0); HEMOGLOBIN 14.4 GM/DL (11.6-15.3); LYMPH % 16.5 % (9.0-44.0); LYMPHOCYTE # 1.7 TH/MM3 (1.0-4.8); MEAN CELL VOLUME 87.4 FL (80.0-100.0); MEAN CORPUSCULAR HGB CONC 33.2 % (32.0-36.0); MEAN PLATELET VOLUME 8.9 FL (7.0-11.0); MONO % 4.2 % (0.0-8.0); MONOCYTE # 0.4 TH/MM3 (0-0.9); NEUT % 78.4 % (16.0-70.0); PLATELET COUNT 270 TH/MM3 (150-450); RED BLOOD COUNT 4.98 MIL/MM3 (4.00-5.30); RED CELL DISTRIBUTION WIDTH 13.4 % (11.6-17.2); WHITE BLOOD COUNT 10.4 TH/MM3 (4.0-11.0)
[2017-08-28 13:25] LABS: INTERNATIONAL NORMALIZED RATIO 0.9 RATIO; PROTHROMBIN TIME - PATIENT 9.5 SEC (9.8-11.6)
[2017-08-28 13:30] LABS: BICARBONATE 22.1 MEQ/L (21.0-32.0); BLOOD UREA NITROGEN 16 MG/DL (7-18); CALCIUM 8.7 MG/DL (8.5-10.1); CHLORIDE 100 MEQ/L (98-107); CREATININE 0.88 MG/DL (0.50-1.00); GLOMERULAR FILTRATION RATE 62 ML/MIN (>89); SODIUM (NA) 134 MEQ/L (136-145)
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
[2017-08-28 14:18] LABS: GLUCOSE,RANDOM 275 MG/DL (74-106)
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
[2017-08-28] MEDS ORDERED: RESP: ALBUTEROL 2.5 MG/IPRATROPIUM 0.5 MG NEB (SCH) NEB ONE (15:00)
[2017-08-28 15:08] LABS: TROPONIN I LESS THAN 0.02 NG/ML (0.02-0.05)
[2017-08-28] MEDS ORDERED: IBUPROFEN 600 MG TAB PO ONE (15:15)
[2017-08-28 16:24] VITALS: BP 134/73; PULSE 106; RESP 14; O2SAT 94
[2017-08-28] MEDS ORDERED: ROBA500T PO (17:04)
[2017-08-28] MEDS ORDERED: IBUP-232 PO (17:04)
[2017-08-28 17:05] VITALS: BP 136/72
--- NOTE | 2017-08-29 12:54 | EKG ---
Date Performed: 08/28/2017 Time Performed: 12:57:21 PTAGE: 77 years EKG: SINUS TACHYCARDIA ABNORMAL RHYTHM ECG PREVIOUS TRACING : 10/30/2016 22.10 Since the previous tracing, no significant change noted DOCTOR: Wayne May Interpretating Date/Time 08/29/2017 12:51:41
== END 2017-08-28 17:37 | disposition home or self-care (01) ==
LOC: NEPC 12:14
DX: S20.219A Contusion of unspecified front wall of thorax, initial encounter (principal); S09.90XA Unspecified injury of head, initial encounter; S80.11XA Contusion of right lower leg, initial encounter; S16.1XXA Strain of muscle, fascia and tendon at neck level, initial encounter; I10 Essential (primary) hypertension; J44.9 Chronic obstructive pulmonary disease, unspecified; V43.52XA Car driver injured in collision with other type car in traffic accident, initial encounter; Y92.481 Parking lot as the place of occurrence of the external cause
CPT/HCPCS: 70450; 71045; 71250; 72125; 73564; 73590; 74176; 80048; 82550; 82552; 84484; 85025; 85610; 85730; 93005; 94664; 96360; 96361; 99285; J7030

== ENCOUNTER 2017-10-26 12:46 | Inpatient (IN) ==
[2017-10-26] MEDS ORDERED: MethylPREDNISolone Sod Succinate Inj 125 MG/2 ML Vial IV.PUSH ONE (13:17)
[2017-10-26] MEDS ORDERED: Aspirin 325 MG Tablet PO ONE (13:20)
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
[2017-10-26 14:04] LABS: Bilirubin,Urine Negative (Negative); Clarity,Urine Clear (Clear); Color,Urine Straw (Yellw/Straw); Glucose,Urine (UA) Negative (Negative); Leukocyte Esterase,Urine Negative (Negative); Nitrite,Urine Negative (Negative); Specific Gravity,Urine 1.003 (1.002-1.035); Squamous Epithelial Cell,Urine <1 /hpf (0-5)
[2017-10-26 14:05] LABS: Baso # (Auto) 0.1 th/mm3 (0.0-0.2); Baso % (Auto) 1.1 % (0.0-2.0); Eos # (Auto) 0.4 th/mm3 (0.0-0.4); Eos % (Auto) 4.1 % (0.0-4.0); Hematocrit 43.3 % (35.0-46.0); Hemoglobin 14.3 gm/dL (11.6-15.3); Lymph # (Auto) 2.9 th/mm3 (1.0-4.8); Lymph % (Auto) 29.1 % (9.0-44.0); Mean Corpuscular HGB Conc 32.9 % (32.0-36.0); Mean Corpuscular Hemoglobin 29.8 pg (27.0-34.0); Mean Corpuscular Volume 90.6 fL (80.0-100.0); Mean Platelet Volume 9.5 fL (7.0-11.0); Mono # (Auto) 0.8 th/mm3 (0.0-0.9); Mono % (Auto) 7.5 % (0.0-8.0); Neut # (Auto) 5.9 th/mm3 (1.8-7.7); Neut % (Auto) 58.2 % (16.0-70.0); Platelet Count 252 th/mm3 (150-450); Red Blood Count 4.78 mil/mm3 (4.00-5.30); Red Cell Distribution Width 12.9 % (11.6-17.2); White Blood Count 10.1 th/mm3 (4.0-11.0)
[2017-10-26 14:13] LABS: Activated Partial Thrombo Time 24.5 sec (24.3-30.1); Prothrombin Time 9.8 sec (9.8-11.6)
[2017-10-26 14:20] LABS: Anion Gap 10 meq/L (5-15); Aspartate Aminotransferase 17 U/L (15-37); Blood Urea Nitrogen 15 mg/dL (7-18); Calcium 8.8 mg/dL (8.5-10.1); Chloride 103 meq/L (98-107); Glomerular Filtration Rate 64 mL/min (>89); Glucose,Random 170 mg/dL (74-106); Magnesium 2.2 mg/dL (1.5-2.5); Potassium 3.8 meq/L (3.5-5.1); Sodium 138 meq/L (136-145)
[2017-10-26 14:22] LABS: Alanine Aminotransferase 24 U/L (10-53)
[2017-10-26 14:25] LABS: Alkaline Phosphatase 134 U/L (45-117); Creatine Kinase 126 U/L (26-192); Total Protein 6.9 g/dL (6.4-8.2)
[2017-10-26 14:37] LABS: Creatine Kinase MB 2.3 ng/mL (0.5-3.6)
--- NOTE | 2017-10-26 15:08 | ED ---
HPI General Chief Complaint: Shortness of Breath/Dyspnea Stated Complaint: SOB/Chest pain Time Seen by Provider: 10/26/17 13:02 Source: patient Mode of arrival: ambulatory Limitations: no limitations History of Present Illness Patient is a 77-year-old female who presents to the emergency room with multiple complaints. Patient reports that she has not been feeling well since Thursday. Patient reports that she has been feeling short of breath, reports that she is also been having chest pain. Patient reports that she feels as if there is something on her chest. Patient reports her chest pain has been continuous since Thursday. Nothing makes the chest pain better or worse. Patient did follow-up with her primary care doctor, reports that she was scheduled for an ultrasound of her lower extremity to rule out DVT. Patient reports that along with her chest pain, she has been having dyspnea on exertion. When she does have chest pain symptoms, she does feel short of breath with this. Patient with no history of PE or DVT, she is currently not taking any anticoagulants. Related Data Allergies Allergy/AdvReac Type Severity Reaction Status Date / Time sulfamethoxazole Allergy Severe Anaphylaxis Verified 10/26/17 13:42 [From Bactrim] trimethoprim [From Bactrim] Allergy Severe Anaphylaxis Verified 10/26/17 13:42 candesartan Allergy Intermediate Hypertensio Verified 10/26/17 13:40 n clarithromycin Allergy Intermediate Hypertensio Verified 10/26/17 13:40 n glyburide Allergy Intermediate Hyperglycem Verified 10/26/17 13:40 ia hydrochlorothiazide Allergy Intermediate Hypertensio Verified 10/26/17 13:40 n meperidine Allergy Intermediate Tachycardia Verified 10/26/17 13:40 metoprolol Allergy Intermediate Hypertensio Verified 10/26/17 13:40 n Penicillins Allergy Intermediate SWELLING Verified 10/26/17 13:40 ramipril Allergy Intermediate Hypertensio Verified 10/26/17 13:40 n iodine Allergy Mild Hives Verified 10/26/17 13:40 iohexol Allergy Mild Hives Verified 10/26/17 13:40 theophylline Allergy Unknown UNKNOWN Verified 10/26/17 13:40 alprazolam AdvReac Intermediate AGITATION Verified 10/26/17 13:40 codeine AdvReac Intermediate Tachycardia Verified 10/26/17 13:40 fosinopril AdvReac Intermediate Tachycardia Verified 10/26/17 13:40 insulin aspart AdvReac Intermediate Palpitation Verified 10/26/17 13:40 s insulin aspart protamine AdvReac Intermediate Palpitation Verified 10/26/17 13: 40 human s insulin detemir AdvReac Intermediate Palpitation Verified 10/26/17 13:40 s insulin glargine AdvReac Intermediate Palpitation Verified 10/26/17 13:40 s insulin isophane (NPH) AdvReac Intermediate Palpitation Verified 10/26/17 13:40 s insulin lispro AdvReac Intermediate Palpitation Verified 10/26/17 13:40 s insulin regular AdvReac Intermediate Palpitation Verified 10/26/17 13:40 s metformin AdvReac Intermediate Hyperglycem Verified 10/26/17 13:40 ia metronidazole AdvReac Intermediate Nausea/Vomi Verified 10/26/17 13:40 ting promethazine AdvReac Intermediate Nausea/Vomi Verified 10/26/17 13:40 ting morphine AdvReac Mild AGITATION Verified 10/26/17 13:40 [facility] Medical History Medical History COPD (chronic obstructive pulmonary disease) (Acute) Diabetes mellitus (Acute) HTN (hypertension) (Acute) Surgical History Surgical History Hx of cholecystectomy (Acute) Hx of tonsillectomy (Acute) Social History Social History Second Hand Smoke Exposure: No Smoking Status: Never smoker How Often Do You Have a Drink Containing Alcohol: Never Recent Travel in [place] within the Last 8 Weeks: No Recent Out of Country Travel within the Last 8 Weeks: No Immunization History Tetanus Immunization: Unsure Hx Influenza Vaccine This Season: No Course Initial Documented Vital Signs Temperature 98.5 F 10/26/17 12:56 Pulse Rate 113 H 10/26/17 12:56 Respiratory Rate 24 10/26/17 12:56 Blood Pressure 152/86 H 10/26/17 12:56 Pulse Oximetry 97 10/26/17 12:56 Last Documented Vital Signs Temperature 98.5 F 10/26/17 12:56 Pulse Rate 100 H 10/26/17 15:00 Respiratory Rate 20 10/26/17 15:00 Blood Pressure 150/76 H 10/26/17 15:00 Pulse Oximetry 98 10/26/17 15:00 Medical Decision Making MDM Narrative Medical decision making narrative: CBC: wnl BMP: sodium 138, chloride 103, BUN 15, CR 0.86, mag 2.2 Trop less than 0.02 Doppler US: neg for DVT VQ:low prob for PE Patient will be placed in the chest pain unit for serial trops Medical Records Medical records reviewed: Yes I reviewed the patient's medical records. Lab Data Lab results reviewed: Yes I reviewed the patient's lab results. Result diagrams: 10/26/17 13:30 10/26/17 13:30 Lab Results 10/26/17 10/26/17 10/26/17 Range/Units 13:20 13:30 13:30 WBC 10.1 (4.0-11.0) th/mm3 RBC 4.78 (4.00-5.30) mil/mm3 Hgb 14.3 (11.6-15.3) gm/dL Hct 43.3 (35.0-46.0) % MCV 90.6 (80.0-100.0) fL MCH 29.8 (27.0-34.0) pg MCHC 32.9 (32.0-36.0) % RDW 12.9 (11.6-17.2) % Plt Count 252 (150-450) th/mm3 MPV 9.5 (7.0-11.0) fL Neut % (Auto) 58.2 (16.0-70.0) % Lymph % (Auto) 29.1 (9.0-44.0) % [place] % (Auto) 7.5 (0.0-8.0) % Eos % (Auto) 4.1 H (0.0-4.0) % Baso % (Auto) 1.1 (0.0-2.0) % Neut # (Auto) 5.9 (1.8-7.7) th/mm3 Lymph # (Auto) 2.9 (1.0-4.8) th/mm3 [place] # (Auto) 0.8 (0.0-0.9) th/mm3 Eos # (Auto) 0.4 (0.0-0.4) th/mm3 Baso # (Auto) 0.1 (0.0-0.2) th/mm3 WBC Differential . Differential Comment Auto diff final PT 9.8 (9.8-11.6) sec INR 1.0 Ratio APTT 24.5 (24.3-30.1) sec Sodium (136-145) meq/L Potassium (3.5-5.1) meq/L Chloride (98-107) meq/L Carbon Dioxide (21.0-32.0) meq/L Anion Gap (5-15) meq/L BUN (7-18) mg/dL Creatinine (0.50-1.00) mg/dL Estimated GFR (>89) mL/min Random Glucose (74-106) mg/dL Calcium (8.5-10.1) mg/dL Magnesium (1.5-2.5) mg/dL Total Bilirubin (0.2-1.0) mg/dL AST (15-37) U/L ALT (10-53) U/L Alkaline Phosphatase (45-117) U/L Total Creatine Kinase (26-192) U/L CK-MB (CK-2) (0.5-3.6) ng/mL Troponin I (0.02-0.05) ng/mL Total Protein (6.4-8.2) g/dL Albumin (3.4-5.0) g/dL Urine Color Straw (Yellw/Straw) Urine Clarity Clear (Clear) Urine pH 6.0 (5.0-8.5) Ur Specific [place] 1.003 (1.002-1.035) Urine Protein Negative (Neg-Trace) mg/dL Urine Glucose (UA) Negative (Negative) mg/dL Urine Ketones Negative (Negative) mg/dL Urine Occult Blood Negative (Negative) Urine Nitrate Negative (Negative) Urine Bilirubin Negative (Negative) Urine Urobilinogen Less than 2 (Less than 2) mg/dL Ur Leukocyte Esterase Negative (Negative) Urine WBC Less than 1 (0-5) /hpf Ur Squamous Epith Cells <1 (0-5) /hpf Micro UA Comment Culture not ind Urine Culture Comments Culture not ind 10/26/17 Range/Units 13:30 WBC (4.0-11.0) th/mm3 RBC (4.00-5.30) mil/mm3 Hgb (11.6-15.3) gm/dL Hct (35.0-46.0) % MCV (80.0-100.0) fL MCH (27.0-34.0) pg MCHC (32.0-36.0) % RDW (11.6-17.2) % Plt Count (150-450) th/mm3 MPV (7.0-11.0) fL Neut % (Auto) (16.0-70.0) % Lymph % (Auto) (9.0-44.0) % [place] % (Auto) (0.0-8.0) % Eos % (Auto) (0.0-4.0) % Baso % (Auto) (0.0-2.0) % Neut # (Auto) (1.8-7.7) th/mm3 Lymph # (Auto) (1.0-4.8) th/mm3 [place] # (Auto) (0.0-0.9) th/mm3 Eos # (Auto) (0.0-0.4) th/mm3 Baso # (Auto) (0.0-0.2) th/mm3 WBC Differential Differential Comment PT (9.8-11.6) sec INR Ratio APTT (24.3-30.1) sec Sodium 138 (136-145) meq/L Potassium 3.8 (3.5-5.1) meq/L Chloride 103 (98-107) meq/L Carbon Dioxide 25.0 (21.0-32.0) meq/L Anion Gap 10 (5-15) meq/L BUN 15 (7-18) mg/dL Creatinine 0.86 (0.50-1.00) mg/dL Estimated GFR 64 L (>89) mL/min Random Glucose 170 H (74-106) mg/dL Calcium 8.8 (8.5-10.1) mg/dL Magnesium 2.2 (1.5-2.5) mg/dL Total Bilirubin 0.3 (0.2-1.0) mg/dL AST 17 (15-37) U/L ALT 24 (10-53) U/L Alkaline Phosphatase 134 H (45-117) U/L Total Creatine Kinase 126 (26-192) U/L CK-MB (CK-2) 2.3 (0.5-3.6) ng/mL Troponin I Less than 0.02 L (0.02-0.05) ng/mL Total Protein 6.9 (6.4-8.2) g/dL Albumin 4.0 (3.4-5.0) g/dL Urine Color (Yellw/Straw) Urine Clarity (Clear) Urine pH (5.0-8.5) Ur Specific [place] (1.002-1.035) Urine Protein (Neg-Trace) mg/dL Urine Glucose (UA) (Negative) mg/dL Urine Ketones (Negative) mg/dL Urine Occult Blood (Negative) Urine Nitrate (Negative) Urine Bilirubin (Negative) Urine Urobilinogen (Less than 2) mg/dL Ur Leukocyte Esterase (Negative) Urine WBC (0-5) /hpf Ur Squamous Epith Cells (0-5) /hpf Micro UA Comment Urine Culture Comments Imaging Data Attestation: I personally reviewed and interpreted this imaging study as follows : Radiologist's impression: Chest X-Ray 10/26/17 13:17 CONCLUSION: No acute cardiopulmonary findings. Venous Doppler Study 10/26/17 14:44 CONCLUSION: Negative for deep venous thrombosis. Inder Holman MD FACR Pulmonary Perfusion Imaging 10/26/17 14:59 CONCLUSION: 1. Central air-trapping on the ventilatory images possibly representing some degree of COPD. 2. Otherwise, low probability scan for pulmonary embolus. Discharge Plan Discharge Disposition Patient Disposition: 30 Still Patient Discharge Condition Condition: Stable Physicians Team ED Provider: Ruthann Powell Primary Care Provider: Yancy Dsouza Discharge Interventions Interventions: Vital Signs Last Done: 10/26/17 15:00 Status ED Status: With Doctor
--- NOTE | 2017-10-26 15:29 | ECG ---
Date Performed: 10/26/2017 Time Performed: 13:15:42 PTAGE: 77 years EKG: SINUS TACHYCARDIA ABNORMAL RHYTHM ECG No significant change from prior electrocardiogram. DOCTOR: Atul Limon Interpretating Date/Time 10/26/2017 15:28:36
--- NOTE | 2017-10-26 15:36 | US ---
EXAM DATE: 10/26/2017 3:31 PM EDT AGE/SEX: 77 years / Female INDICATIONS: Bilateral leg swelling. CLINICAL DATA: This is the patient's initial encounter. Patient reports that signs and symptoms have been present for 1 week and indicates a pain score of 1/10. MEDICAL/SURGICAL HISTORY: . Diabetes. COPD. HTN. Anticoagulant therapy, Aspirin 81mg. Cholecy stectomy. Tonsillectomy. COMPARISON: No prior exams available for comparison. TECHNIQUE: Venous ultrasound of both lower extremities was performed from the inguinal ligament to t he proximal calf. Real-time, color Doppler and spectral tracing, compression and augmentation techni ques were used. FINDINGS: Right Leg: Normal compression of the deep venous system from the inguinal region to the proximal shay f. No echogenic clot is seen. Normal response of the venous system to augmentation and respiration. Left Leg: Normal compression of the deep venous system from the inguinal region to the proximal calf . No echogenic clot is seen. Normal response of the venous system to augmentation and respiration. Other: None. : CONCLUSION: Negative for deep venous thrombosis. Inder Holman MD FACR Electronically signed by: Inder Holman MD 10/26/2017 3:35 PM EDT
--- NOTE | 2017-10-26 16:42 | NM ---
EXAM DATE: 10/26/2017 4:37 PM EDT AGE/SEX: 77 years / Female INDICATIONS: Shortness of breath for one day. CLINICAL DATA: This is the patient's initial encounter. Patient reports that signs and symptoms have been present for 1 day and indicates a pain score of 2/10. MEDICAL/SURGICAL HISTORY: Chronic obstructive pulmonary disease. Diabetes mellitus type II. H ypertension. Cholecystectomy. Tonsillectomy. COMPARISON: C, CHEST 1V SINGLE AP, 10/26/2017. . No external comparison. DOSE: 0.9 mCi Tc99m DTPA aerosol 8.6 mCi Tc99m MAA IV TECHNIQUE: Following five minutes of tidal breathing of DTPA aerosol, planar images of the lungs wer e performed in eight projections. The patient was then injected with MAA, and eight-view perfusion s can was performed. FINDINGS: Ventilatory images show some central air trapping with no large ventilatory defect. The perfusion lung scan demonstrates a homogenous pattern of uptake in both lungs. No segmental or s ubsegmental defects are seen. CONCLUSION: 1. Central air-trapping on the ventilatory images possibly representing some degree of COPD. 2. Otherwise, low probability scan for pulmonary embolus. Electronically signed by: Lamonte Aburto MD 10/26/2017 4:41 PM EDT
[2017-10-26 18:29] LABS: Creatine Kinase 100 U/L (26-192)
--- NOTE | 2017-10-26 19:00 | P.HPCA ---
History of Present Illness Primary Care Physician: Yancy Dsouza MD Chief Complaint: Chest pain History of Present Illness: 77 year old female with history of hypertension and COPD presents to [facility] for further evaluation of worsening dyspnea and chest tightness. Onset 1000. Location generalized upper chest. Duration constant. Severe in severity. Tried home nebulizer treatments without relief. No precipitating or relieving factors. No nausea, vomiting, or diaphoresis. No recent illness, fever, or injury. Due to increase in severity with constant chest tightness came to [facility] for further evaluation. Follows with Dr. Johnson, reports having 3 cardiac catheterizations all reported to be normal. Most recent cardiac catheterization 2011. Lexiscan 2015 unremarkable, reports having a severe reaction during Lexiscan. Echocardiogram completed early this year reported to be normal. Patient's follows with double needle stitcher, Dr. Inman. Most recent, pulmonary function test reported to be nearly normal. Chest MRI [address] Inman following a right nodule completing x2 CT chest yearly. Diagnosed with COPD due to chemical exposure, no history of smoking. Awakens nightly around 3am "gasping" for breath. Sleeps on one pillow. Denies nocturnal polyuria. No weight gain. Past cardiac testing Cardiac catheterization 2011 normal coronary arteries. Lexiscan 2015 unremarkable no evidence of ischemia. - Diagnosis (1) Atypical chest pain (2) COPD (chronic obstructive pulmonary disease) (3) Hypertension Review of Systems All other systems reviewed negative except as stated [facility] - History History Provided By: Patient - Medical History Medical History: Medical History (Last Updated 10/26/17 @ 18:54 by JASSON Osorio) COPD (chronic obstructive pulmonary disease) Diabetes mellitus GERD (gastroesophageal reflux disease) HTN (hypertension) - Surgical History Surgical History: Surgical History (Last Reviewed 10/26/17 @ 18:54 by JASSON Osorio) Hx of cholecystectomy Hx of tonsillectomy - Tobacco History Second Hand Smoke Exposure: No Smoking Status: Never smoker - Alcohol History How Often Do You Have a Drink Containing Alcohol: Never - Travel History History of Recent Travel: No Recent Travel in the [place] Within the Last 8 Weeks: No Recent Travel Out of the Country Within the Last 8 Weeks: No - Immunization History Tetanus Immunization: Unsure Hx Influenza Vaccine This Season: No Medications and Allergies Active Medications: Active Medications Albuterol (Duoneb Neb (Prn)) 3 ampul NEB Q15M PRN PRN Reason: WHEEZING Last Admin: 10/26/17 14:07 Dose: 3 ampul Albuterol (Albuterol Neb (Prn)) 2.5 mg NEB Q2HR NEB PRN PRN Reason: WHEEZING Albuterol (Albuterol Neb (Ladonna)) 2.5 mg NEB Q4HR NEB LADONNA Sodium Chloride (Ns Flush) 2 ml IV.FLUSH BID LADONNA Sodium Chloride (Ns Flush) 2 ml IV.FLUSH PRN PRN PRN Reason: FLUSH AFTER USING IV ACCESS Allergies Allergy/AdvReac Type Severity Reaction Status Date / Time sulfamethoxazole Allergy Severe Anaphylaxis Verified 10/26/17 13:42 [From Bactrim] trimethoprim [From Bactrim] Allergy Severe Anaphylaxis Verified 10/26/17 13:42 candesartan Allergy Intermediate Hypertensio Verified 10/26/17 13:40 n clarithromycin Allergy Intermediate Hypertensio Verified 10/26/17 13:40 n glyburide Allergy Intermediate Hyperglycem Verified 10/26/17 13:40 ia hydrochlorothiazide Allergy Intermediate Hypertensio Verified 10/26/17 13:40 n meperidine Allergy Intermediate Tachycardia Verified 10/26/17 13:40 metoprolol Allergy Intermediate Hypertensio Verified 10/26/17 13:40 n Penicillins Allergy Intermediate SWELLING Verified 10/26/17 13:40 ramipril Allergy Intermediate Hypertensio Verified 10/26/17 13:40 n iodine Allergy Mild Hives Verified 10/26/17 13:40 iohexol Allergy Mild Hives Verified 10/26/17 13:40 theophylline Allergy Unknown UNKNOWN Verified 10/26/17 13:40 alprazolam AdvReac Intermediate AGITATION Verified 10/26/17 13:40 codeine AdvReac Intermediate Tachycardia Verified 10/26/17 13:40 fosinopril AdvReac Intermediate Tachycardia Verified 10/26/17 13:40 insulin aspart AdvReac Intermediate Palpitation Verified 10/26/17 13:40 s insulin aspart protamine AdvReac Intermediate Palpitation Verified 10/26/17 13: 40 human s insulin detemir AdvReac Intermediate Palpitation Verified 10/26/17 13:40 s insulin glargine AdvReac Intermediate Palpitation Verified 10/26/17 13:40 s insulin isophane (NPH) AdvReac Intermediate Palpitation Verified 10/26/17 13:40 s insulin lispro AdvReac Intermediate Palpitation Verified 10/26/17 13:40 s insulin regular AdvReac Intermediate Palpitation Verified 10/26/17 13:40 s metformin AdvReac Intermediate Hyperglycem Verified 10/26/17 13:40 ia metronidazole AdvReac Intermediate Nausea/Vomi Verified 10/26/17 13:40 ting promethazine AdvReac Intermediate Nausea/Vomi Verified 10/26/17 13:40 ting morphine AdvReac Mild AGITATION Verified 10/26/17 13:40 Home Medications Medication Instructions Recorded Confirmed Type albuterol sulfate 0.63 mg INHALATION QID PRN 10/26/17 10/26/17 History albuterol sulfate [Ventolin HFA] 2 puff INHALATION Q4-6H PRN 10/26/17 10/26/17 History amlodipine 5 mg PO BID 10/26/17 10/26/17 History aspirin 81 mg PO DAILY 10/26/17 10/26/17 History pantoprazole [Protonix] 20 mg PO BID 10/26/17 10/26/17 History Exam Vital signs: Vital Signs 10/26/17 12:56 10/26/17 13:28 10/26/17 13:50 Temperature 98.5 F Pulse Rate 113 H 107 H Respiratory Rate 24 Blood Pressure 152/86 H Pulse Oximetry 97 100 10/26/17 14:00 10/26/17 14:04 10/26/17 14:11 Temperature Pulse Rate 106 H 120 H 105 H Respiratory Rate 19 24 14 Blood Pressure 156/81 H 157/82 H Pulse Oximetry 97 96 98 10/26/17 15:00 10/26/17 17:02 Temperature Pulse Rate 100 H 98 H Respiratory Rate 20 19 Blood Pressure 150/76 H 151/70 H Pulse Oximetry 98 97 Intake & Output 10/25/17 10/26/17 10/26/17 18:59 06:59 18:59 Weight 63.503 kg Narrative: GENERAL: Alert WN, WD, NAD, pleasant, elderly female HEAD: NC, AT EYES: Sclera clear, conjunctiva without injection, pupils equal and round ENT: Mucous membranes pink and moist, no nasal discharge or bleeding NECK: Supple, no masses, trachea midline CV: RRR, without murmur, rub, gallop, no JVD. RESP: Clear lungs throughout bilateral, no crackles, wheeze, rhonchi, symmetrical chest rise, nonlabored, able to speak in full sentences ABD: Soft, NT, ND, no masses, positive bowel tones EXT: Pulses +2x4, +1 nonpitting bilateral lower extremity edema MS: Normal tone x4 extremities, nontender, no obvious deformities, full range of motion NEURO: CN II through CN XII grossly intact, motor strength 5/5 PSYCH: A+O x3, pleasant affect, appropriate speech, mood, insight and judgment SKIN: Normal turgor, normal texture, no lesions, no rashes, brisk cap refill, even hair distribution Results 10/26/17 13:30 10/26/17 13:30 Cardiac Enzymes 10/26/17 10/26/17 Range/Units 13:30 17:15 AST 17 (15-37) U/L CK-MB (CK-2) 2.3 (0.5-3.6) ng/mL Troponin I Less than 0.02 L Less than 0.02 L (0.02-0.05) ng/mL Coagulation 10/26/17 Range/Units 13:30 PT 9.8 (9.8-11.6) sec APTT 24.5 (24.3-30.1) sec CBC 10/26/17 Range/Units 13:30 WBC 10.1 (4.0-11.0) th/mm3 RBC 4.78 (4.00-5.30) mil/mm3 Hgb 14.3 (11.6-15.3) gm/dL Hct 43.3 (35.0-46.0) % Plt Count 252 (150-450) th/mm3 Neut # (Auto) 5.9 (1.8-7.7) th/mm3 Lymph # (Auto) 2.9 (1.0-4.8) th/mm3 [place] # (Auto) 0.8 (0.0-0.9) th/mm3 Eos # (Auto) 0.4 (0.0-0.4) th/mm3 Baso # (Auto) 0.1 (0.0-0.2) th/mm3 Comprehensive Metabolic Panel 10/26/17 Range/Units 13:30 Sodium 138 (136-145) meq/L Potassium 3.8 (3.5-5.1) meq/L Chloride 103 (98-107) meq/L Carbon Dioxide 25.0 (21.0-32.0) meq/L BUN 15 (7-18) mg/dL Creatinine 0.86 (0.50-1.00) mg/dL Calcium 8.8 (8.5-10.1) mg/dL AST 17 (15-37) U/L ALT 24 (10-53) U/L Alkaline Phosphatase 134 H (45-117) U/L Total Protein 6.9 (6.4-8.2) g/dL Albumin 4.0 (3.4-5.0) g/dL Intake and Output 10/26/17 10/26/17 10/26/17 06:59 14:59 22:59 Other: Weight 63.503 kg Patient Weight 10/27/17 06:59 Weight 63.503 kg EKG interpretations - EKG EKG results cardiology: sinus rhythm, normal axis, normal QRS, normal ST/T Caprini VTE Risk Assessment Caprini VTE Risk Assessment: Moderate/High Risk (score >= 2) Caprini Risk Assessment Model: Point Value = 1 Point Value = 2 Point Value = 3 Point Value = 5 Age 41-60 Minor surgery BMI > 25 kg/m2 Swollen legs Varicose veins or History of unexplained or recurrent spontaneous Oral contraceptives or hormone replacement Sepsis (< 1 month) Serious lung disease, including pneumonia (< 1 month) Abnormal pulmonary function Acute myocardial infarction Congestive heart failure (< 1 month) History of inflammatory bowel disease Medical patient at bed rest Age 61-74 Arthroscopic surgery Major open surgery (> 45 min) Laparoscopic surgery (> 45 min) Malignancy Confined to bed (> 72 hours) Immobilizing plaster cast Central venous access Age >= 75 History of VTE Family history of VTE Factor V Leiden Prothrombin [id number] Lupus anticoagulant Anticardiolipin antibodies Elevated serum homocysteine Heparin-induced thrombocytopenia Other congenital or acquired thrombophilia Stroke (< 1 month) Elective arthroplasty Hip, pelvis, or leg fracture Acute spinal cord injury (< 1 month) Prophylaxis Regimen: Total Risk Factor Score Risk Level Prophylaxis Regimen 0-1 Low Early ambulation 2 Moderate Order ONE of the following: *Sequential Compression Device (SCD) *Heparin 5000 units SQ BID 3-4 Higher Order ONE of the following medications: *Heparin 5000 units SQ TID *Enoxaparin/Lovenox 40 mg SQ daily (WT < 150 kg, CrCl > 30 mL/min) *Enoxaparin/Lovenox 30 mg SQ daily (WT < 150 kg, CrCl > 10-29 mL/min) *Enoxaparin/Lovenox 30 mg SQ BID (WT < 150 kg, CrCl > 30 mL/min) AND/OR *Sequential Compression Device (SCD) 5 or more Highest Order ONE of the following medications: *Heparin 5000 units SQ TID (Preferred with Epidurals) *Enoxaparin/Lovenox 40 mg SQ daily (WT < 150 kg, CrCl > 30 mL/min) *Enoxaparin/Lovenox 30 mg SQ daily (WT < 150 kg, CrCl > 10-29 mL/min) *Enoxaparin/Lovenox 30 mg SQ BID (WT < 150 kg, CrCl > 30 mL/min) AND *Sequential Compression Device (SCD) Assessment and Plan - Assessment (1) Atypical chest pain Code(s): R07.89 - Other chest pain Status: Acute Plan: Admitted to chest pain center. Continue ACS protocol. Discomfort unlikely related to cardiac etiology due to duration since 10 AM, normal ekg, and unremarkable first troponin. Will be seen and evaluated by Dr. Sibley in a.m. further recommendation to follow after evaluation by clinic manager. Patient expressed concern over repeating Lexiscan due to adverse reaction with last testing. (2) COPD (chronic obstructive pulmonary disease) Code(s): J44.9 - Chronic obstructive pulmonary disease, unspecified Status: Chronic Plan: Albuterol nebulizers every 4 hours and every 2 as needed as needed for wheezing. Continue to monitor SPO2. SPO2 maintained on room air. (3) Hypertension Code(s): I10 - Essential (primary) hypertension Status: Chronic Plan: Continue amlodipine. (2) COPD (chronic obstructive pulmonary disease) Qualifiers: Emphysema type: unspecified (3) Hypertension Qualifiers: Hypertension type: unspecified Qualified Code(s): I10 - Essential (primary) hypertension
[2017-10-26] MEDS: Pantoprazole Sodium 20 MG DR Tablet PO SCH (20:18)
[2017-10-26 21:28] LABS: Creatine Kinase 90 U/L (26-192)
[2017-10-27] MEDS ORDERED: amLODIPine 5 MG Tablet PO SCH (09:00)
[2017-10-27] MEDS: Pantoprazole Sodium 20 MG DR Tablet PO SCH ×2 (09:31→20:26)
--- NOTE | 2017-10-27 09:56 | P.PNCA ---
Subjective Interval history: Currently denying chest discomfort overnight. Continued complaint of shortness of breath and wheezing. Patient reports having 3 normal heart catheterizations most recently being 2011. Upon reviewing records she had a nonischemic Lexiscan 2014. Physical Exam Vital signs: Vital Signs 10/26/17 12:56 10/26/17 13:28 10/26/17 13:50 Temperature 98.5 F Pulse Rate 113 H 107 H Respiratory Rate 24 Blood Pressure 152/86 H Pulse Oximetry 97 100 10/26/17 14:00 10/26/17 14:04 10/26/17 14:11 Temperature Pulse Rate 106 H 120 H 105 H Respiratory Rate 19 24 14 Blood Pressure 156/81 H 157/82 H Pulse Oximetry 97 96 98 10/26/17 15:00 10/26/17 17:02 10/26/17 18:12 Temperature Pulse Rate 100 H 98 H 109 H Respiratory Rate 20 19 Blood Pressure 150/76 H 151/70 H 161/75 H Pulse Oximetry 98 97 10/26/17 20:00 10/26/17 21:14 10/27/17 02:00 Temperature 98.2 F Pulse Rate 101 H 102 H 86 Respiratory Rate 16 22 18 Blood Pressure 165/72 H 156/71 H Pulse Oximetry 96 98 95 10/27/17 02:51 10/27/17 04:00 10/27/17 07:19 Temperature 97.7 F Pulse Rate 88 84 98 H Respiratory Rate 20 18 16 Blood Pressure 135/66 Pulse Oximetry 93 L 97 10/27/17 08:00 Temperature 98.1 F Pulse Rate 86 Respiratory Rate 16 Blood Pressure 150/63 H Pulse Oximetry 93 L Intake & Output 10/26/17 10/27/17 10/27/17 18:59 06:59 18:59 Weight 63.503 kg Other: # Voids 1 Date of Last Bowel Movement 10/26/17 Narrative: General: Patient is resting in the bed. No apparent distress. Speaking in clear and complete sentences. Lungs: Wheezing and decreased air movement. GI abdomen nontender. Bowel sounds normal. Cardiac: Regular rate and rhythm without murmur gallop or rub. Assessment and Plan - Plan * COPD exacerbation: Patient has scheduled nebulizer treatments and as needed. Patient was seen by Dr. Sibley recommends patient be admitted for a COPD exacerbation. Believes symptoms are pulmonary related and less likely cardiac. I discussed this patient with Dr. Smith is graciously agreed to set this patient. Will give Solu-Medrol 60 IV every 6 hours.
[2017-10-27] MEDS: MethylPREDNISolone Sod Succinate Inj 125 MG/2 ML Vial IV.PUSH SCH ×3 (13:03→20:38)
[2017-10-27] MEDS: Insulin NovoLIN Regular Correctional Sugar Inj SQ SCH ×3 (14:34→22:28)
[2017-10-27] MEDS ORDERED: Ibuprofen 400 MG Tablet PO PRN (14:49)
--- NOTE | 2017-10-27 16:17 | ECG ---
Date Performed: 10/27/2017 Time Performed: 00:32:55 PTAGE: 77 years EKG: Sinus rhythm MODERATE INTRAVENTRICULAR CONDUCTION DELAY BORDERLINE ECG Since PREVIOUS TRACING , no significant change noted DOCTOR: Yoselin Sibley Interpretating Date/Time 10/27/2017 16:16:07
--- NOTE | 2017-10-27 16:18 | ECG ---
Date Performed: 10/26/2017 Time Performed: 21:33:58 PTAGE: 77 years EKG: SINUS TACHYCARDIA WITH OCCASIONAL ECTOPIC PREMATURE COMPLEXES NONSPECIFIC T-WAVE ABNORMALIT Y ABNORMAL RHYTHM ECG Since PREVIOUS TRACING , no significant change noted PREVIOUS TRACIN10/26/2017 13.15 DOCTOR: Yoselin Sibley Interpretating Date/Time 10/27/2017 16:16:53
--- NOTE | 2017-10-27 17:42 | P.PNIM ---
Subjective Interval history: Pt is a pleasant 77 y/o F [facility] Pt states that principle presenting complaint is SOB. Pt states that she has frequent flares of COPD. Pt follows with Pulmonary Medicine, Dr. Inman. Pt states that she developed worsening SOB over the last 4-5 days. Pt correlates the increased SOB to trying a steroid inhaler at her PCP's office and exposure to multiple women wearing perfume at [employer]. Pt less SOB from admission. Physical Exam Vital signs: 10/27/17 11:36 10/27/17 14:52 10/27/17 15:53 Temperature 97.7 F 98.1 F Pulse Rate 91 H 84 87 Respiratory Rate 18 20 16 Blood Pressure 184/74 H 139/63 Pulse Oximetry 95 96 Narrative: GENERAL: This is a well-nourished, well-developed patient, in no apparent distress. CARDIOVASCULAR: Regular rate and rhythm without murmurs, gallops, or rubs. RESPIRATORY: wheezing at lung bases GASTROINTESTINAL: Abdomen soft, non-tender, nondistended. Normal active bowel sounds MUSCULOSKELETAL: Extremities without clubbing, cyanosis, or edema. NEURO: Alert & Oriented x4 to person, place, time, situation. Moves all ext x4 Results - Labs CBC & Chem 7: 10/26/17 13:30 10/26/17 13:30 - Imaging Chest X-Ray 10/26/17 13:17 CONCLUSION: No acute cardiopulmonary findings. Venous Doppler Study 10/26/17 14:44 CONCLUSION: Negative for deep venous thrombosis. Pulmonay Perfusion Imaging 10/26/17 14:59 CONCLUSION: 1. Central air-trapping on the ventilatory images possibly representing some degree of COPD. 2. Otherwise, low probability scan for pulmonary embolus. Assessment and Plan - Assessment (1) COPD (chronic obstructive pulmonary disease) Code(s): J44.9 - Chronic obstructive pulmonary disease, unspecified Status: Chronic Plan: Pt is a pleasant 77 y/o F [facility] - serial Reed were negative Pt states that principle presenting complaint is SOB. Pt states that she has frequent flares of COPD. Pt follows with Pulmonary Medicine, Dr. Inman. Pt states that she developed worsening SOB over the last 4-5 days. Pt correlates the increased SOB to trying a steroid inhaler at her PCP's office and exposure to multiple women wearing perfume at [employer]. Pt less SOB from admission. - decrease solumedrol to 60mg IV BID - continue scheduled and prn duonebs - start singulair - SCDs for DVT prophylaixs - supportive care - Pt reports that she had a recent outpt CT chest with Dr. Inman, will obtain results and review. Pulmonay Perfusion Imaging 10/26/17 14:59 CONCLUSION: 1. Central air-trapping on the ventilatory images possibly representing some degree of COPD. 2. Otherwise, low probability scan for pulmonary embolus. HTN - continue norvasc - observe Steroid induced Hyperglycemia - pt refuses insulin - pt states that she is allergic to all insulins (2) Hypertension Code(s): I10 - Essential (primary) hypertension Status: Chronic (3) Atypical chest pain Code(s): R07.89 - Other chest pain Status: Acute (1) COPD (chronic obstructive pulmonary disease) Qualifiers: Emphysema type: unspecified (2) Hypertension Qualifiers: Hypertension type: unspecified Qualified Code(s): I10 - Essential (primary) hypertension
[2017-10-27] MEDS ORDERED: ALPRAZolam 0.25 MG Tablet PO PRN (17:44)
[2017-10-27] MEDS: amLODIPine 5 MG Tablet PO SCH (20:26)
[2017-10-27] MEDS: Montelukast 10 MG Tablet PO SCH (20:26)
[2017-10-28] MEDS: Insulin NovoLIN Regular Correctional Sugar Inj SQ SCH ×4 (08:51→22:09)
[2017-10-28] MEDS: amLODIPine 5 MG Tablet PO SCH ×2 (09:58→22:08)
[2017-10-28] MEDS: Pantoprazole Sodium 20 MG DR Tablet PO SCH ×2 (09:59→22:09)
[2017-10-28] MEDS: MethylPREDNISolone Sod Succinate Inj 125 MG/2 ML Vial IV.PUSH SCH (10:00)
[2017-10-28] MEDS ORDERED: Polyethylene Glycol 3350 17 GM Packet PO ONE (16:56)
--- NOTE | 2017-10-28 17:06 | P.PNIM ---
Subjective Interval history: Follow up SOB Patient able to ambulate in the halls reports SOB is better today Physical Exam Vital signs: Vital Signs 10/27/17 20:32 10/27/17 20:55 10/28/17 00:40 Temperature 97.8 F 97.4 F L Pulse Rate 80 88 80 Respiratory Rate 17 18 18 Blood Pressure 137/65 127/60 Pulse Oximetry 98 98 93 L 10/28/17 02:34 10/28/17 03:23 10/28/17 04:26 Temperature 97.7 F Pulse Rate 76 64 74 Respiratory Rate 18 18 Blood Pressure 132/60 Pulse Oximetry 98 10/28/17 07:50 10/28/17 07:59 10/28/17 08:08 Temperature 97.8 F Pulse Rate 74 82 77 Respiratory Rate 16 18 Blood Pressure 140/64 Pulse Oximetry 93 L 98 10/28/17 12:00 10/28/17 15:42 10/28/17 16:41 Temperature 97.7 F 98.0 F Pulse Rate 82 91 H 95 H Respiratory Rate 16 16 16 Blood Pressure 158/74 H 138/67 Pulse Oximetry 97 94 L Intake & Output 10/27/17 10/28/17 10/28/17 18:59 06:59 18:59 Other: # Voids 3 Date of Last Bowel Movement 10/26/17 10/26/17 Narrative: GENERAL: This is a well-nourished, well-developed patient, in no apparent distress. CARDIOVASCULAR: Regular rate and rhythm RESPIRATORY: clear bilaterally GASTROINTESTINAL: Abdomen soft, non-tender, nondistended. Normal active bowel sounds MUSCULOSKELETAL: Extremities without clubbing, cyanosis, or edema. NEURO: Alert & Oriented x4 to person, place, time, situation. Moves all ext x4 Results - Labs CBC & Chem 7: 10/26/17 13:30 10/26/17 13:30 Laboratory Results - last 24 hr 10/27/17 10/27/17 10/28/17 17:25 22:26 08:51 POC Glucose 366 H 344 H 315 H 10/28/17 12:34 POC Glucose 318 H Assessment and Plan - Assessment (1) COPD (chronic obstructive pulmonary disease) Code(s): J44.9 - Chronic obstructive pulmonary disease, unspecified Status: Chronic Plan: Pt is a pleasant 77 y/o F transferred to [facility] - serial Reed were negative Pt states that principle presenting complaint is SOB. Pt states that she has frequent flares of COPD. Pt follows with Pulmonary Medicine, Dr. Inman. Pt states that she developed worsening SOB over the last 4-5 days. Pt correlates the increased SOB to trying a steroid inhaler at her PCP's office and exposure to multiple women wearing perfume at [employer]. Pt less SOB from admission. - Initially on solumedrol to 60mg IV, (10/28) DC IV steroids - (10/28) start prednisone 20 mg PO BID - continue scheduled and prn duonebs - continue Singulair - SCDs for DVT prophylaixs - supportive care - Pt reports that she had a recent outpt CT chest with Dr. Inman, will obtain results and review. Pulmonay Perfusion Imaging 10/26/17 14:59 CONCLUSION: 1. Central air-trapping on the ventilatory images possibly representing some degree of COPD. 2. Otherwise, low probability scan for pulmonary embolus. HTN - continue norvasc - observe Steroid induced Hyperglycemia - pt refuses insulin - pt states that she is allergic to all insulins Possible DC to tomorrow (2) Hypertension Code(s): I10 - Essential (primary) hypertension Status: Chronic (3) Atypical chest pain Code(s): R07.89 - Other chest pain Status: Acute - Attending Attestation Patient examined. Assessment and plan formulated with Salome El PA-C. I agree with the above. (1) COPD (chronic obstructive pulmonary disease) Qualifiers: Emphysema type: unspecified (2) Hypertension Qualifiers: Hypertension type: unspecified Qualified Code(s): I10 - Essential (primary) hypertension
[2017-10-28] MEDS: Benzonatate 100 MG Capsule PO SCH (18:13)
[2017-10-28] MEDS: Montelukast 10 MG Tablet PO SCH (22:08)
[2017-10-28] MEDS: predniSONE 20 MG Tablet PO SCH (22:08)
[2017-10-29] MEDS: Benzonatate 100 MG Capsule PO SCH ×2 (06:26→09:12)
[2017-10-29] MEDS: Insulin NovoLIN Regular Correctional Sugar Inj SQ SCH ×2 (08:16→13:13)
[2017-10-29] MEDS ORDERED: Polyethylene Glycol 3350 17 GM Packet PO SCH (09:00)
[2017-10-29] MEDS: amLODIPine 5 MG Tablet PO SCH (09:12)
[2017-10-29] MEDS: Pantoprazole Sodium 20 MG DR Tablet PO SCH (09:12)
[2017-10-29] MEDS: predniSONE 20 MG Tablet PO SCH (09:13)
[2017-10-29 12:03] VITALS: RESP 16; TEMP 98; O2SAT 96
--- NOTE | 2017-10-29 13:20 | P.DS ---
<Salome El - Last Filed: 10/29/17 14:22> Date of admission: 10/26/17 16:49 Primary care physician: Yancy Dsouza MD Attending physician on discharge: Fabrice Smith Anticipated date of discharge: 10/29/17 Brief History from admission: 77 year old female with history of hypertension and COPD presents to [facility] for further evaluation of worsening dyspnea and chest tightness. Onset 1000. Location generalized upper chest. Duration constant. Severe in severity. Tried home nebulizer treatments without relief. No precipitating or relieving factors. No nausea, vomiting, or diaphoresis. No recent illness, fever, or injury. Due to increase in severity with constant chest tightness came to [facility] for further evaluation. Follows with Dr. Johnson, reports having 3 cardiac catheterizations all reported to be normal. Most recent cardiac catheterization 2011. Lexiscan 2014 unremarkable, reports having a severe reaction during Lexiscan. Echocardiogram completed early this year reported to be normal. Patient's follows with regional sales coordinator, Dr. Inman. Most recent, pulmonary function test reported to be nearly normal. Chest MRI [address] Inman following a right nodule completing x2 CT chest yearly. Diagnosed with COPD due to chemical exposure, no history of smoking. Awakens nightly around 3am "gasping" for breath. Sleeps on one pillow. Denies nocturnal polyuria. No weight gain. Past cardiac testing Cardiac catheterization 2011 normal coronary arteries. Lexiscan 2014 unremarkable no evidence of ischemia. DS: Diagnosis - Discharge Diagnosis (1) COPD (chronic obstructive pulmonary disease) Status: Chronic (2) Hypertension Status: Chronic (3) Atypical chest pain Status: Acute DS: Medications - Discharge Medications Prescriptions: benzonatate [Tessalon Perles] 100 mg PO TID PRN #20 cap PRN Reason: Cough montelukast 10 mg PO HS 30 Days #30 tab prednisone See Taper PO DIRECTED #7 tab DS: Summary Hospital Course: Pt is a pleasant 77 y/o F transferred to [facility]. - serial Reed were negative Pt states that principle presenting complaint is SOB. Pt states that she has frequent flares of COPD. Pt follows with Pulmonary Medicine, Dr. Inman. Pt states that she developed worsening SOB over the last 4-5 days. Pt correlates the increased SOB to trying a steroid inhaler at her PCP's office and exposure to multiple women wearing perfume at [employer]. Pt less SOB from admission. - Initially on solumedrol to 60mg IV, (10/28) DC IV steroids - (10/28) start prednisone 20 mg PO BID - continue scheduled and prn duonebs - continue Singulair - would like to DC patient on inhaled COPD medication, but patient refusing to start any new inhaled medications - SCDs for DVT prophylaixs - supportive care - Pt reports that she had a recent outpt CT chest with Dr. Inman - patient completed walk test and does not require home oxygen Pulmonay Perfusion Imaging 10/26/17 14:59 CONCLUSION: 1. Central air-trapping on the ventilatory images possibly representing some degree of COPD. 2. Otherwise, low probability scan for pulmonary embolus. HTN - continue norvasc - observe Untreated DM - pt refuses insulin - pt states that she is allergic to all insulins, Glipizide, metformin, Januvia , Actos, Glyburide - HA1c from old patient records 9.0 - offered to start patient on Amaryl glimepiride explained the risks of untreated DM, including possible coma/, patient continues to refuse all diabetic medication including insulin and oral agents. - Time Spent with Patient Total time spent providing and/or coordinating discharge services: Greater than 30 minutes - Quality: VTE Deep Vein Thrombosis/Pulmonary Embolism Present on Admission: No Exam Vital signs: Vital Signs 10/28/17 15:42 10/28/17 16:41 10/28/17 18:19 Temperature 98.0 F 97.7 F Pulse Rate 91 H 95 H 88 Respiratory Rate 16 16 16 Blood Pressure 138/67 165/73 H Pulse Oximetry 94 L 95 Pulse Oximetry [Exertion on Room Air] Pulse Oximetry [Resting on Room Air] 10/28/17 21:00 10/28/17 23:49 10/29/17 03:26 Temperature 97.6 F Pulse Rate 88 80 80 Respiratory Rate 16 18 18 Blood Pressure 129/60 Pulse Oximetry 97 Pulse Oximetry [Exertion on Room Air] Pulse Oximetry [Resting on Room Air] 10/29/17 03:46 10/29/17 08:00 10/29/17 08:31 Temperature 97.5 F L 97.8 F Pulse Rate 77 75 99 H Respiratory Rate 20 16 18 Blood Pressure 141/65 H 142/69 H Pulse Oximetry 95 100 Pulse Oximetry [Exertion on Room Air] 98 Pulse Oximetry [Resting on Room Air] 100 10/29/17 12:00 Temperature 98.0 F Pulse Rate 81 Respiratory Rate 16 Blood Pressure 149/73 H Pulse Oximetry 96 Pulse Oximetry [Exertion on Room Air] Pulse Oximetry [Resting on Room Air] Intake & Output 10/28/17 10/29/17 10/29/17 18:59 06:59 18:59 Other: # Voids 5 Date of Last Bowel Movement 10/26/17 10/26/17 10/29/17 Narrative: GENERAL: This is a well-nourished, well-developed patient, in no apparent distress. CARDIOVASCULAR: Regular rate and rhythm RESPIRATORY: clear bilaterally GASTROINTESTINAL: Abdomen soft, non-tender, nondistended. Normal active bowel sounds MUSCULOSKELETAL: Extremities without clubbing, cyanosis, or edema. NEURO: Alert & Oriented x4 to person, place, time, situation. Moves all ext x4 Results Procedures completed during hospitalization: none Labs on day of discharge: Labs from last 24 hours 10/29/17 10/28/17 10/28/17 08:15 22:05 17:59 POC Glucose 333 H 333 H 352 H - Impressions ITS Impressions Chest X-Ray 10/26/17 13:17 CONCLUSION: No acute cardiopulmonary findings. Venous Doppler Study 10/26/17 14:44 CONCLUSION: Negative for deep venous thrombosis. Inder Holman MD FACR Pulmonary Perfusion Imaging 10/26/17 14:59 CONCLUSION: 1. Central air-trapping on the ventilatory images possibly representing some degree of COPD. 2. Otherwise, low probability scan for pulmonary embolus. <Fabrice Smith - Last Filed: 11/03/17 11:13> Date of admission: 10/27/17 17:13 Primary care physician: Yancy Dsouza MD DS: Diagnosis - Discharge Diagnosis (1) COPD (chronic obstructive pulmonary disease) Status: Chronic (2) Hypertension Status: Chronic (3) Atypical chest pain Status: Acute DS: Summary Hospital Course: Patient examined. Assessment and plan formulated with Salome El PA-C. I agree with the above. - Time Spent with Patient Total time spent providing and/or coordinating discharge services: Results - Impressions ITS Impressions Chest X-Ray 10/26/17 13:17 CONCLUSION: No acute cardiopulmonary findings. Venous Doppler Study 10/26/17 14:44 CONCLUSION: Negative for deep venous thrombosis. Inder Holman MD FACR Pulmonary Perfusion Imaging 10/26/17 14:59 CONCLUSION: 1. Central air-trapping on the ventilatory images possibly representing some degree of COPD. 2. Otherwise, low probability scan for pulmonary embolus. Discharge Plan - Discharge Order Discharge Orders: Discharge Order (Routine); Ordered 10/29/17 Ordered By: Salome El - Physicians Team Primary Care Provider: Ynacy Dsouza Attending Provider: Fabrice Smith
[2017-10-29 14:22] VITALS: BP 150/79; PULSE 86
== END 2017-10-29 15:00 | disposition home or self-care (01) ==
LOC: NEPC 12:46 → NEDA 12:46 → NEPGCP 19:23
PROVIDERS: ADMIT Hospitalist; ATTEND Hospitalist